=== PATIENT | female | born 1930 | race Caucasian/White ===

== ENCOUNTER 2020-07-24 10:33 | Emergency (ER) | payer MEDICARE ==
[~2020-07-24] VITALS: Ht 160 cm; Wt 75.0 kg
[2020-07-24 10:33] VITALS: BP 172/84
--- NOTE | 2020-07-24 10:46 | PHYS DOC ---
General Adult EDM: Chief Complaint: MECHANICAL FALL HPI: HPI: History obtained from patient and EMS. Patient is an 89-year-old female who resides at [facility] with a history of dementia presents with chief complaint of fall. EMS states they were called the facility because patient experienced mechanical fall 30 minutes prior to arrival. EMS states falls unwitnessed with her the patient fall and responded to immediately. She does use a walker and a cane at baseline ambulate. Patient does note some swelling to the back of her head. She states that she did not lose consciousness. EMS states she does not take any blood thinners. Patient has no other complaints other than some posterior head pain. Denies any chest pain or shortness of breath. Review of Systems: Review of Systems: Constitutional: Denies fever or chills Eyes: Denies change in visual acuity HENT: Denies nasal congestion or sore throat Respiratory: Denies cough or shortness of breath Cardiovascular: Denies chest pain or edema GI: Denies abdominal pain, nausea, vomiting, bloody stools or diarrhea : Denies dysuria Musculoskeletal: Positive for fall Integument: Denies rash Neurologic: Denies headache, focal weakness or sensory changes Endocrine: Denies polyuria or polydipsia Lymphatic: Denies swollen glands Psychiatric: Denies depression or anxiety Heart Score: Risk Factors: Risk Factors: DM, Current or recent (<one month) smoker, HTN, HLP, family history of CAD, obesity. Risk Scores: Score 0 - 3: 2.5% MACE over next 6 weeks - Discharge Home Score 4 - 6: 20.3% MACE over next 6 weeks - Admit for Clinical Observation Score 7 - 10: 72.7% MACE over next 6 weeks - Early Invasive Strategies Allergies: Allergies: Allergies Coded Allergies Type Severity Reaction Last Updated Verified No Known Drug Allergies 07/24/20 No Physical Exam: PE: Physical Exam Trauma: Primary Survey: Airway: Intact. Speaks in normal voice and phonation. Breathing: Breath sounds are clear and equal bilaterally. Circulation: Regular rhythm, 2+ and symmetric radial, DP and PT pulses. Disability: GCS on arrival was 1 (Baseline )4. Pupils 3 mm, ERRL Exposure: Complete exposure obtained and described in detail below. Secondary Survey: General: Awake, alert, appropriate, and in no acute distress HENT: Cephalohematoma noted to the posterior occiput. TMs clear bilaterally, no hemotympanum. No periorbital tenderness or deformity. No obvious craniofacial trauma. Midface is stable. No apparent dental or tongue/oropharyngeal injury. No septal hematoma. Neck: C-spine: no midline tenderness. Without step-off, deformity, abrasion, ecchymosis, or other signs of trauma. Paraspinal musculature with no tenderness and/or hypertonicity. Eyes: Pupils 3 mm ERRL, EOMI grossly, no evidence of ocular trauma, conjunctivae normal Respiratory: CTAB without wheezing, rhonchi, or rales. No distress. Chest wall with no tenderness to palpation. No crepitus, ecchymosis, or flail segment present. Cardiovascular: Regular rhythm without murmurs noted. 2+ and symmetric radial, DP and PT pulses. GI: Soft, non-tender, non-distended Musculoskeletal: T-spine: no midline tenderness. Without step-off, deformity, abrasion, ecchymosis, or other signs of trauma. Paraspinal musculature with no tenderness and/or hypertonicity. L-spine: no midline tenderness. Without step-off, deformity, abrasion, ecchymosis, or other signs of trauma. Paraspinal musculature with no tenderness and/or hypertonicity. RUE: Active ROM, no obvious deformity, no gross weakness or sensory deficits, warm & well-perfused LUE: Active ROM, no obvious deformity, no gross weakness or sensory deficits, warm & well-perfused RLE: Active ROM, no obvious deformity, no gross weakness or sensory deficits, w arm & well-perfused LLE: Active ROM, no obvious deformity, no gross weakness or sensory deficits, warm & well-perfused Integument: Without abrasions, contusions, or lacerations. Neurologic: GCS on arrival as noted above. No obvious focal motor or sensory deficits on examination. Gait not assessed due to acuity of trauma assessment. Current Patient Data: Vital Signs: Vital Signs Date Time Temp Pulse Resp B/P (MAP) Pulse Ox O2 Delivery O2 Flow Rate FiO2 07/24/20 10:33 98.1 62 22 172/84 (113) 95 Room Air EKG: EKG: [] Radiology/Procedures: Radiology/Procedures: [address] [address] IMAGING REPORT Signed PATIENT: DIAMOND NANCE ACCOUNT: [id number] : 1930 LOCATION: ER AGE: 89 SEX: F EXAM STATUS: REG ER ORD. PHYSICIAN: WENDIE BORRERO DO REASON: fall. PROCEDURE: CT HEAD AND CERVICAL SPINE WO CT HEAD AND CERVICAL SPINE WO Date: 07/24/2020 10:40 AM Clinical Indication: fall. Pain Comparison: None. Technique: 5 mm axial tomographic images were obtained of the head without contrast. These were viewed on brain and bone windows. Noncontrast CT of the cervical spine was performed. Sagittal and coronal reformats were performed and evaluated. One or more of the following dose reduction techniques were utilized: Automated exposure control (AEC), Adjustment of mA and/or kV according to patient size, Use of iterative reconstruction technique such as ASiR, CT scan done according to ALARA and image gently/image wisely HEAD FINDINGS: Moderate generalized cerebral and cerebellar volume loss. Extensive nonspecific periventricular hypoattenuation, most commonly seen with chronic small vessel ischemic disease. Small area of right frontal encephalomalacia. No intra- or extra-axial mass or fluid collection. No acute hemorrhage. The ventricles are normal in size, shape, and morphology. The farris-white matter junction is normal. The basilar cisterns are patent. The visualized paranasal sinuses are normal. The visualized portions of the orbits and globes are normal. The mastoid air cells are clear. No aggressive osseous lesion or fracture. Posterior scalp swelling CERVICAL SPINE FINDINGS: Reversal of the cervical lordosis centered at C6-7. 4 mm anterolisthesis at C4-5. No acute fracture. No aggressive lytic or blastic osseous lesions. Moderate multilevel degenerative disc space height loss. Multilevel mild and moderate spinal canal stenosis secondary to disc protrusions and marginal osteophytes. Multilevel moderate to severe neuroforaminal narrowing secondary to uncovertebral arthrosis. Multilevel severe facet arthrosis. The thyroid gland is normal. No cervical lymphadenopathy. Bilateral carotid atherosclerosis. The visualized aerodigestive tract is normal. The visualized portions of the lungs are clear. IMPRESSION: 1. No acute intracranial process. Posterior scalp swelling. 2. No acute cervical spine fracture. 3. Moderate cerebral volume loss. Extensive chronic small vessel ischemic disease. Small area of right frontal encephalomalacia. 4. Advanced degenerative cervical spondylosis. Electronically signed by: Rudi Clavillo MD (07/24/2020 11:13 AM) [id number] DICTATED AND SIGNED BY: RUDI CALVILLO MD DATE: 07/24/20 111 CC: WENDIE BORRERO DO; ROSIBEL LOVE MD ~ [][place] [address] IMAGING REPORT Signed PATIENT: DIAMOND NANCE ACCOUNT: [id number] : 1930 LOCATION: ER AGE: 89 SEX: F EXAM STATUS: REG ER ORD. PHYSICIAN: WENDIE BORRERO DO REASON: fall PROCEDURE: CHEST AP ONLY CHEST AP ONLY History: Reason: fall / Spl. Instructions: / History: . Pain Comparison: None. Findings: No consolidation or pleural effusion. Normal heart size. No pneumothorax. Bilateral glenohumeral DJD. Probable hiatal hernia. Impression: 1. No acute cardiopulmonary process. Electronically signed by: Elijah Diamond DO (07/24/2020 11:07 AM) [id number] DICTATED AND SIGNED BY: ELIJAH DIAMOND DO DATE: 07/24/201106 CC: WENDIE BORRERO DO; ROSIBEL LOVE MD ~ Course & Med Decision Making: Course & Med Decision Making Pertinent Labs and Imaging studies reviewed. (See chart for details) [] Patient is a very pleasant 89-year-old female who presents from her nursing care facility for mechanical fall. CT head imaging of the head and neck were negative for acute traumatic abnormality. Cephalohematoma noted. Patient does not take any blood thinners. Her GCS is 14 which is her baseline secondary to her dementia. Chest x-ray nonacute. I do feel the patient is appropriate for discharge home. She was able to ambulate at her baseline with assistance of a walker in the emergency department. She will be discharged back to her nursing facility. Return precautions discussed and understood. Stable for discharge. Dragon Disclaimer: Dragon Disclaimer: This electronic medical record was generated, in whole or in part, using a voice recognition dictation system. Departure Departure: Impression: Primary Impression: Fall Qualified Codes: W19.XXXA - Unspecified fall, initial encounter Additional Impression: Head injury Qualified Codes: S09.90XA - Unspecified injury of head, initial encounter Disposition: 03 DC/TRF TO SNF Condition: STABLE Referrals: PCP,NO (PCP) Patient Instructions: Fall Prevention and Home Safety Additional Instructions: Please follow-up with your primary care physician in the next 2 to 3 days. WENDIE BORRERO DO Jul 24, 2020 10:46
--- NOTE | 2020-07-24 11:09 | RAD ---
CHEST AP ONLY History: Reason: fall / Spl. Instructions: / History: . Pain Comparison: None. Findings: No consolidation or pleural effusion. Normal heart size. No pneumothorax. Bilateral glenohumeral DJD. Probable hiatal hernia. Impression: 1. No acute cardiopulmonary process. Electronically signed by: Elijah Taylor DO (07/24/2020 11:07 AM) [id number]
--- NOTE | 2020-07-24 11:17 | RAD ---
CT HEAD AND CERVICAL SPINE WO Date: 07/24/2020 10:40 AM Clinical Indication: fall. Pain Comparison: None. Technique: 5 mm axial tomographic images were obtained of the head without contrast. These were viewed on brain and bone windows. Noncontrast CT of the cervical spine was performed. Sagittal and coronal reformats were performed and evaluated. One or more of the following dose reduction techniques were utilized: Automated exposure control (AEC), Adjustment of mA and/or kV according to patient size, Use of iterative reconstruction technique such as ASiR, CT scan done according to ALARA and image gently/image wisely HEAD FINDINGS: Moderate generalized cerebral and cerebellar volume loss. Extensive nonspecific periventricular hypoattenuation, most commonly seen with chronic small vessel ischemic disease. Small area of right frontal encephalomalacia. No intra- or extra-axial mass or fluid collection. No acute hemorrhage. The ventricles are normal in size, shape, and morphology. The farris-white matter junction is normal. The basilar cisterns are patent. The visualized paranasal sinuses are normal. The visualized portions of the orbits and globes are normal. The mastoid air cells are clear. No aggressive osseous lesion or fracture. Posterior scalp swelling CERVICAL SPINE FINDINGS: Reversal of the cervical lordosis centered at C6-7. 4 mm anterolisthesis at C4-5. No acute fracture. No aggressive lytic or blastic osseous lesions. Moderate multilevel degenerative disc space height loss. Multilevel mild and moderate spinal canal stenosis secondary to disc protrusions and marginal osteophytes. Multilevel moderate to severe neuroforaminal narrowing secondary to uncovertebral arthrosis. Multilevel severe facet arthrosis. The thyroid gland is normal. No cervical lymphadenopathy. Bilateral carotid atherosclerosis. The visualized aerodigestive tract is normal. The visualized portions of the lungs are clear. IMPRESSION: 1. No acute intracranial process. Posterior scalp swelling. 2. No acute cervical spine fracture. 3. Moderate cerebral volume loss. Extensive chronic small vessel ischemic disease. Small area of right frontal encephalomalacia. 4. Advanced degenerative cervical spondylosis. Electronically signed by: Sean Calvillo MD (07/24/2020 11:13 AM) [id number]
== END 2020-07-24 11:21 ==
LOC: ER 10:33
DX: S06.2X9A Diffuse traumatic brain injury with loss of consciousness of unspecified duration, initial encounter (principal); F03.90 Unspecified dementia, unspecified severity, without behavioral disturbance, psychotic disturbance, mood disturbance, and anxiety; W18.39XA Other fall on same level, initial encounter; Y93.89 Activity, other specified; Y92.89 Other specified places as the place of occurrence of the external cause; Y99.8 Other external cause status
CPT/HCPCS: 70450; 71045; 72125; 99285

== ENCOUNTER 2020-08-27 10:55 | Emergency (ER) | payer MEDICARE ==
[~2020-08-27] VITALS: Ht 167.6 cm; Wt 81.4 kg
--- NOTE | 2020-08-27 11:05 | PHYS DOC ---
Past History Past Medical History: CVA, Dementia, Depression, GERD, Hypertension, Hypothyroid, Other (Parkinson's, osteoporosis) Adult General HPI HPI Patient is a 89-year-old female who presents via EMS status post fall. Patient is a full code and resident at local [facility] facility. Patient reports suffering a mechanical fall falling over her legs while using a walker in her room, she attempted to grab lampshade to brace her fall, falling on her right knee and then subsequent right forehead. Denies loss of consciousness, remembers event well. Nonetheless, this fall was unwitnessed. She was found by nursing staff immediately after event and there were difficulties getting her up and so EMS was called for assistance. On arrival, patient hemodynamically stable, at baseline mentation with baseline motor and sensory function status post prior CVA. She reports complaints of anterior left frontotemporal pain, neck pain and right knee pain Review of Systems Review of Systems Fourteen body systems of review of systems have been reviewed. See HPI for pertinent positives and negative responses, other ventura all other systems are negative, non-pertinent or non-contributory Physical Exam Physical Exam Constitutional: Pt is oriented to person, place, and time. Pt appears well- developed and well-nourished. HENT: Head: Normocephalic and atraumatic. Mouth/Throat: Oropharynx is clear and moist. No hematomas or lacerations or abrasions to face or scalp OP clear, no blood, no malocclusion, dentition intact Nares clear, no nasal septal hematoma TMs clear, no hemotympanum Midface stable Eyes: Conjunctivae and EOM are normal. Pupils are equal, round, and reactive to light. Neck: C-spine midline nontender, no step-offs Cardiovascular: Normal rate, regular rhythm and normal heart sounds. Pulmonary/Chest: Effort normal and breath sounds normal. No respiratory distress. No wheezes. CTA bilaterally Abdominal: Soft. Bowel sounds are normal. Pt exhibits no distension. There is no tenderness. Musculoskeletal: No bony tenderness to extremities except palpable tenderness to anterior portion of knee without any crepitus or other concerning abnormalities,, no obvious deformities, full ROM extremities Chest wall stable Pelvis stable and non-tender No vertebral TTP and spine without stepoffs Neurological: Pt is alert and oriented to person, place, and time. Moving all extremities willfully, able to wiggle all fingers and toes Alert and oriented x 3 Sensation grossly intact Skin: Skin is warm and dry. No abrasions, no lacerations Psychiatric: Behavior is appropriate for situation Nursing note and vitals reviewed. Current Patient Data Vital Signs Vital Signs Date Time Temp Pulse Resp B/P (MAP) Pulse Ox O2 Delivery O2 Flow Rate FiO2 08/27/20 12:33 57 16 193/83 (119) 97 Room Air 08/27/20 11:16 98.0 EKG EKG EKG ordered and interpreted by myself 1020 hrs. as sinus rhythm at 54 bpm, unremarkable intervals, left axis deviation, no acute ischemic findings, no STEMI Radiology/Procedures Radiology/Procedures PROCEDURE: CT HEAD AND CERVICAL SPINE WO EXAM: CT Head without IV contrast INDICATION: Reason: fall, rt side deficits / Spl. Instructions: / History: TECHNIQUE: Multi-detector row CT images were obtained of the head without the use of IV contrast. All CT scans performed at this facility utilize dose optimization techniques as appropriate to the exam, including the following: Automated exposure control and adjustment of the mA and/or KV according to patient size (this includes techniques or standardized protocols for targeted exams where dose is indication/reason for exam). COMPARISON: None FINDINGS: BRAIN PARENCHYMA: No evidence of acute intraparenchymal hemorrhage or infarct. Generalized parenchymal atrophy and encephalomalacia in the superior right frontal lobe consistent with chronic infarct is present. Extensive white matter low density compatible with chronic ischemic microvascular changes also noted. VENTRICLES & EXTRA-AXIAL SPACES: Ventricles are enlarged in proportion to the degree of parenchymal volume loss. Basilar cisterns are patent. No pathologic extra-axial fluid collection or mass. ORBITS: Orbital contents are unremarkable. SINUSES: Visualized paranasal sinuses and mastoid air cells are clear. OSSEOUS & SOFT TISSUES: Calvarium and skull base are intact. IMPRESSION: Chronic infarct in the right frontal lobe and changes of chronic ischemic microvascular disease. No acute intracranial pathology. EXAM: CT Cervical Spine without IV contrast INDICATION: Reason: fall, rt side deficits / Spl. Instructions: / History: TECHNIQUE: Multi-detector row CT images were obtained through the cervical spine without the use of IV contrast. Post-processing sagittal and coronal reconstructed images were obtained for interpretation. All CT scans performed at this facility utilize dose optimization techniques as appropriate to the exam, including the following: Automated exposure control and adjustment of the mA and/or KV according to patient size (this includes techniques or standardized protocols for targeted exams where dose is indication/reason for exam). COMPARISON: None FINDINGS: CRANIOCERVICAL JUNCTION: Unremarkable. ALIGNMENT: Grade 1 anterolisthesis of C4 on C5 is present. There is reversal normal cervical lordosis. OSSEOUS: No evidence of fracture or bone destruction. DISC SPACES: Multilevel degenerative spondylosis. FACET JOINTS: Facet hypertrophy at multiple levels throughout the cervical spine is present. SPINAL CANAL: No high-grade bony stenosis. NEUROFORAMINA: Varying degrees of foraminal narrowing, most conspicuous at C4-C5 bilaterally. SOFT TISSUES: Unremarkable. IMPRESSION: No acute traumatic findings in the cervical spine. FOR INTERNAL CODING PURPOSES Critical result: Findings discussed with SAMIA MONTERO at 08/27/2020 11:27 AM. RESULT CODE: (C) Heart Score HEART Score for Chest Pain: HEART Score for Chest Pain Response (Comments) Value History Slighlty/Non-Suspicious 0 ECG Normal 0 Age > 65 2 Risk Factors >3 Risk Factors or Hx CAD 2 Total 4 Risk Factors: Risk Factors: DM, Current or recent (<one month) smoker, HTN, HLP, family history of CAD, obesity. Risk Scores: Risk Factors: DM, Current or recent (<one month) smoker, HTN, HLP, family history of CAD, obesity. Course & Med Decision Making Course & Med Decision Making Pertinent Labs and Imaging studies reviewed. (See chart for details) Discussed most likely diagnosis mechanical fall. Patient likely has contusion to head and right anterior knee with no obvious bony abnormalities Given history, exam, and workup, low suspicion for ICH, skull fx, spine fx or other acute spinal syndrome, PTX, pulmonary contusion, cardiac contusion, aortic/vertebral dissection, significant hemorrhage, extremity fracture. Joint decision to discharge back to senior living with strict return precautions and instructions for prompt primary care follow up. All questions and concerns addressed prior to ER departure in stable condition Narcisa Disclaimer Lateshaon Disclaimer This electronic medical record was generated, in whole or in part, using a voice recognition dictation system. Departure Departure: Impression: Primary Impression: Accident due to mechanical fall without injury Additional Impression: Contusion Disposition: 01 DC HOME SELF CARE/HOMELESS (Back to senior living, [facility]) Condition: STABLE Referrals: ROSIBEL LOVE MD (PCP) Patient Instructions: Contusion, Fall Prevention and Home Safety Problem Qualifiers SAMIA MONTERO DO Aug 27, 2020 11:04
--- NOTE | 2020-08-27 11:21 | EKG ---
[address] [address] Test Date: 2020-08-27 Test Time: 11:17:36 Pat Name: SABRINA NANCE Department: Room: Gender: F Translator/Interpreter: CRISELDA : 1930 Requested By: SAMIA MONTERO Order Number: [id number] Reading MD: Measurements Intervals Ferron Rate: 54 P: SC: QRS: -18 QRSD: 80 T: 1 QT: 430 QTc: 410 Interpretive Statements IRREGULAR RHYTHM, NO P-WAVE FOUND LEFTWARD AXIS QRS(T) CONTOUR ABNORMALITY CONSISTENT WITH INFERIOR INFARCT AGE UNDETERMINED T ABNORMALITY IN HIGH LATERAL LEADS ABNORMAL ECG RI6.02 No previous ECG available for comparison
--- NOTE | 2020-08-27 11:31 | RAD ---
EXAM: CT Head without IV contrast INDICATION: Reason: fall, rt side deficits / Spl. Instructions: / History: TECHNIQUE: Multi-detector row CT images were obtained of the head without the use of IV contrast. All CT scans performed at this facility utilize dose optimization techniques as appropriate to the exam, including the following: Automated exposure control and adjustment of the mA and/or KV according to patient size (this includes techniques or standardized protocols for targeted exams where dose is indication/reason for exam). COMPARISON: None FINDINGS: BRAIN PARENCHYMA: No evidence of acute intraparenchymal hemorrhage or infarct. Generalized parenchymal atrophy and encephalomalacia in the superior right frontal lobe consistent with chronic infarct is present. Extensive white matter low density compatible with chronic ischemic microvascular changes also noted. VENTRICLES & EXTRA-AXIAL SPACES: Ventricles are enlarged in proportion to the degree of parenchymal volume loss. Basilar cisterns are patent. No pathologic extra-axial fluid collection or mass. ORBITS: Orbital contents are unremarkable. SINUSES: Visualized paranasal sinuses and mastoid air cells are clear. OSSEOUS & SOFT TISSUES: Calvarium and skull base are intact. IMPRESSION: Chronic infarct in the right frontal lobe and changes of chronic ischemic microvascular disease. No acute intracranial pathology. EXAM: CT Cervical Spine without IV contrast INDICATION: Reason: fall, rt side deficits / Spl. Instructions: / History: TECHNIQUE: Multi-detector row CT images were obtained through the cervical spine without the use of IV contrast. Post-processing sagittal and coronal reconstructed images were obtained for interpretation. All CT scans performed at this facility utilize dose optimization techniques as appropriate to the exam, including the following: Automated exposure control and adjustment of the mA and/or KV according to patient size (this includes techniques or standardized protocols for targeted exams where dose is indication/reason for exam). COMPARISON: None FINDINGS: CRANIOCERVICAL JUNCTION: Unremarkable. ALIGNMENT: Grade 1 anterolisthesis of C4 on C5 is present. There is reversal normal cervical lordosis. OSSEOUS: No evidence of fracture or bone destruction. DISC SPACES: Multilevel degenerative spondylosis. FACET JOINTS: Facet hypertrophy at multiple levels throughout the cervical spine is present. SPINAL CANAL: No high-grade bony stenosis. NEUROFORAMINA: Varying degrees of foraminal narrowing, most conspicuous at C4-C5 bilaterally. SOFT TISSUES: Unremarkable. IMPRESSION: No acute traumatic findings in the cervical spine. FOR INTERNAL CODING PURPOSES Critical result: Findings discussed with SAMIA MONTERO at 08/27/2020 11:27 AM. RESULT CODE: (C) Electronically signed by: Brenden Simon MD (08/27/2020 11:27 AM) [id number]
--- NOTE | 2020-08-27 12:58 | RAD ---
KNEE RIGHT 4V History: Reason: fall to right knee / Spl. Instructions: / History: Pain Technique: 4 views right knee. Comparison: None. Findings: Normal alignment. No fracture. Moderate knee degenerative changes most prominent in the medial compartment. No significant knee joint effusion. Impression: 1. No acute osseous abnormality. 2. Moderate knee DJD. Electronically signed by: Elijah Taylor DO (08/27/2020 12:55 PM) [id number]
[2020-08-27 14:15] VITALS: BP 178/83
== END 2020-08-27 14:38 | disposition home or self-care (01) ==
LOC: ER 10:55 → MERGE 10:55 → ER 14:38
DX: S00.93XA Contusion of unspecified part of head, initial encounter (principal); S80.01XA Contusion of right knee, initial encounter; M54.2 Cervicalgia; M25.561 Pain in right knee; F03.90 Unspecified dementia, unspecified severity, without behavioral disturbance, psychotic disturbance, mood disturbance, and anxiety; K21.9 Gastro-esophageal reflux disease without esophagitis; I10 Essential (primary) hypertension; E03.9 Hypothyroidism, unspecified; Z86.73 Personal history of transient ischemic attack (TIA), and cerebral infarction without residual deficits; W18.39XA Other fall on same level, initial encounter; Y93.89 Activity, other specified; Y92.89 Other specified places as the place of occurrence of the external cause; Y99.8 Other external cause status
CPT/HCPCS: 70450; 72125; 73564; 82947; 93005; 99285-25

== ENCOUNTER 2020-09-08 09:52 | Inpatient (IN) | payer MEDICARE ==
[~2020-09-08] VITALS: Ht 162.6 cm; Wt 75.9 kg
--- NOTE | 2020-09-08 10:00 | PHYS DOC ---
Past History Past Medical History: CVA, Dementia, Depression, GERD, Hypertension, Hypothyroid, Other Additional Past Medical Histor: Parkinsons, Past Surgical History: , Other Additional Past Surgical Histo: Spinal, GI Alcohol Use: None General Adult EDM: Chief Complaint: NEURO SYMPTOMS/DEFICITS HPI: HPI: Patient is a 89-year-old female who arrives via EMS with a chief complaint of altered mental status and possible stroke. History physical review of systems are all limited due to the patient's history of dementia. Patient was last known normal at 9:20 AM when she went to the cleaning facility at her residential when she sat down she went unresponsive. When paramedics arrived she was responsive to painful stimulus only. By time she arrived she was becoming verbal and complained of a headache and nausea. Patient received 4 mg of Zofran prior to arrival. Paramedics believe the there is a right-sided facial droop therefore code stroke was activated. Upon my initial assessment I do not appreciate any right-sided facial droop. Patient does complain of abdominal pain and nausea. patient's blood pressure was in the 90s per EMS and blood sugar was in the 190s. Review of Systems: Review of Systems: Constitutional: Denies fever or chills Eyes: Denies change in visual acuity HENT: Denies nasal congestion or sore throat Respiratory: Denies cough or shortness of breath Cardiovascular: Denies chest pain or edema GI: Complains abdominal pain, nausea and vomiting but no diarrhea : Denies dysuria Musculoskeletal: Denies back pain or joint pain Integument: Denies rash Neurologic: Patient has a headache Endocrine: Denies polyuria or polydipsia Lymphatic: Denies swollen glands Psychiatric: Denies depression or anxiety Allergies: Allergies: Allergies Coded Allergies Type Severity Reaction Last Updated Verified No Known Drug Allergies 07/24/20 No Physical Exam: PE: Constitutional: Well developed, well nourished, no acute distress, non-toxic appearance. [] HENT: Normocephalic, atraumatic, bilateral external ears normal, mucous membranes are moist nose normal. [] Eyes: PERRLA, EOMI, conjunctiva normal, no discharge. [] Neck: Normal range of motion, no tenderness, supple, no stridor. [] Cardiovascular: Bradycardic peripheral pulses are intact, cap refill is brisk Lungs & Thorax: Bilateral breath sounds clear, no respiratory distress Abdomen: Abdomen soft without guarding or rebound mild diffuse tenderness, no masses no pulsatile masses Skin: Warm, dry, no erythema, no rash. [] Mild pallor Back: No tenderness, no CVA tenderness. [] Extremities: No tenderness, no cyanosis, no clubbing, ROM intact, no edema. [] Neurologic: Alert but mild confusion, generalized weakness without lateralizing deficits Psychologic: Affect normal, judgement normal, mood normal. [] Current Patient Data: Labs: Laboratory Tests Test 09/08/20 10:08 09/08/20 10:58 White Blood Count 5.7 x10^3/uL Red Blood Count 4.93 x10^6/uL Hemoglobin 13.4 g/dL Hematocrit 41.7 % Mean Corpuscular Volume 85 fL Mean Corpuscular Hemoglobin 27 pg Mean Corpuscular Hemoglobin Concent 32 g/dL Red Cell Distribution Width 16.4 % Platelet Count 225 x10^3/uL Neutrophils (%) (Auto) 63 % Lymphocytes (%) (Auto) 23 % Monocytes (%) (Auto) 10 % Eosinophils (%) (Auto) 3 % Basophils (%) (Auto) 1 % Neutrophils # (Auto) 3.6 x10^3uL Lymphocytes # (Auto) 1.3 x10^3/uL Monocytes # (Auto) 0.5 x10^3/uL Eosinophils # (Auto) 0.2 x10^3/uL Basophils # (Auto) 0.1 x10^3/uL Prothrombin Time 9.6 SEC Prothromb Time International Ratio 0.9 Activated Partial Thromboplast Time 23 SEC Sodium Level 141 mmol/L Potassium Level 3.9 mmol/L Chloride Level 103 mmol/L Carbon Dioxide Level 29 mmol/L Anion Gap 9 Blood Urea Nitrogen 14 mg/dL Creatinine 1.0 mg/dL Estimated GFR (Cockcroft-Gault) 52.3 BUN/Creatinine Ratio 14 Glucose Level 166 mg/dL Calcium Level 9.2 mg/dL Total Bilirubin 0.4 mg/dL Aspartate Amino Transf (AST/SGOT) 16 U/L Alanine Aminotransferase (ALT/SGPT) 14 U/L Alkaline Phosphatase 85 U/L Troponin I Quantitative < 0.017 ng/mL Total Protein 7.5 g/dL Albumin 3.8 g/dL Albumin/Globulin Ratio 1.0 Lipase 134 U/L Urine Collection Type U cath Urine Color Yellow Urine Clarity Clear Urine pH 6.0 Urine Specific [place] 1.020 Urine Protein 100 mg/dl Urine Glucose (UA) Neg mg/dL Urine Ketones (Stick) Trace mg/dL Urine Blood Trace Urine Nitrite Neg Urine Bilirubin Neg Urine Urobilinogen Dipstick 0.2 mg/dL Urine Leukocyte Esterase Neg Urine RBC 3-5 /HPF Urine WBC 1-4 /HPF Urine Squamous Epithelial Cells Occ /LPF Urine Transitional Epithelial Cells Occ /LPF Urine Bacteria Few /HPF Urine Hyaline Casts Many /HPF Urine Granular Casts Few /HPF Urine Mucus Mod /LPF Current Medications Medications (Trade) Dose Ordered Sig/Sarah Route PRN Reason Start Time Stop Time Status Last Admin Dose Admin Ondansetron HCl (Zofran) 4 mg PRN Q4HRS PRN IVP NAUSEA/VOMITING 09/08/20 11:45 09/09/20 11:44 Vital Signs: Vital Signs Date Time Temp Pulse Resp B/P (MAP) Pulse Ox O2 Delivery O2 Flow Rate FiO2 09/08/20 10:05 96.0 47 130/80 (97) 93 EKG: EKG: [] EKG interpreted by me sinus bradycardia with a left axis deviation, first- degree AV block, nonspecific ST changes Radiology/Procedures: Radiology/Procedures: [][address] [address] IMAGING REPORT Signed PATIENT: SABRINA NANCE ACCOUNT: [id number] : 1930 LOCATION: ER AGE: 89 SEX: F EXAM STATUS: REG ER ORD. PHYSICIAN: MICHELLE COLIN MD REASON: ABDOMINAL PAIN, N/V PROCEDURE: CT ABDOMEN PELVIS WO CONTRAST Exam: CT abdomen/pelvis without intravenous contrast Indication: Abdominal pain, nausea and vomiting Comparison: None Technique: Helical CT imaging performed of the abdomen and pelvis without the use of intravenous contrast. Sagittal and coronal reformats were obtained. One or more of the following individualized dose reduction techniques were utilized for this examination: 1. Automated exposure control 2. Adjustment of the mA and/or kV according to patient size 3. Use of iterative reconstruction technique. Findings: Inherently limited evaluation without intravenous contrast. Lower chest: Mild atelectasis in the left lower lobe. The heart is normal in size. Liver: The liver is normal in size. There is a 5 mm hypodensity in the right hepatic lobe, too small to characterize. Gallbladder/Biliary Tree: The gallbladder is surgically absent. Bile ducts are unremarkable. Pancreas: Normal. Spleen: Normal. Adrenal Glands: Normal. Kidneys/Ureters/Bladder: Kidneys are normal in size. No hydronephrosis or nephrolithiasis. Ureters and bladder are normal. Reproductive Organs: Uterus is surgically absent. There is a 7.7 x 4.0 x 4.3 cm predominantly solid right adnexal mass with a small cystic component. This abuts a loop of ileum. No left adnexal mass. Stomach, small bowel, and colon: Large hiatal hernia. No small bowel obstruction. The appendix is not visualized. Large volume of stool in the left hemicolon. The colon is otherwise normal. Vasculature: Abdominal aorta is normal in caliber. There is moderate calcified aortoiliac atherosclerosis. Lymph Nodes: There is a 1.3 cm cami hepatis lymph node, nonspecific. Peritoneum and retroperitoneum: No free fluid or free air. Bones: The bones are diffusely demineralized. There is left greater than right sacroiliac joint sclerosis. There are erosions of the ossicular chain on the left. Severe facet arthrosis at L3-L4 through L5-S1. There is grade 1 anterolisthesis of L4 on L5. Multilevel severe degenerative disc disease. Mild rightward curvature of the lower lumbar spine. There is canal and foraminal narrowing at multiple levels this appears most severe at T9-T10 and T10-T11. Miscellaneous: Small fat-containing umbilical hernia. Impression: 1. 7 cm predominantly solid right adnexal mass. This is suspicious for ovarian neoplasm. 2. Large hiatal hernia. 3. Advanced lower thoracic and lumbar degenerative disc disease and facet arthrosis with multilevel canal and foraminal narrowing. Bilateral sacroiliitis. 4. Moderate calcified aortoiliac atherosclerosis. Electronically signed by: Magalie Salazar MD (09/08/2020 11:13 AM) [id number] DICTATED AND SIGNED BY: MAGALIE SALAZAR MD DATE: 09/08/20 1110 CC: MICHELLE COLIN MD; ROSIBEL LOVE MD ~MTH0 [address] [address] IMAGING REPORT Signed PATIENT: SABRINA NANCE ACCOUNT: [id number] : 1930 LOCATION: ER AGE: 89 SEX: F EXAM STATUS: REG ER ORD. PHYSICIAN: MICHELLE COILN MD REASON: code stroke PROCEDURE: CHEST AP ONLY AP portable chest radiograph 09/08/2020 Clinical History: Code stroke. An AP erect portable digital radiograph of the chest was obtained. Comparison study is dated 07/24/2020. The cardiac silhouette is mildly enlarged. The thoracic aorta is tortuous. Atherosclerotic calcification thoracic aorta is seen. No acute pulmonary infiltrate is seen. No pneumothorax or pleural effusion is noted. The osseous structures are unchanged. Impression: No acute abnormality is seen. Electronically signed by: Parag Herr MD (09/08/2020 10:42 AM) [id number] DICTATED AND SIGNED BY: PARAG HERR MD DATE: 09/08/20 1042 CC: MICHELLE COLIN MD; ROSIBEL LOVE MD ~MTH0 [address] [address] IMAGING REPORT Signed PATIENT: SABRINA NANCE ACCOUNT: [id number] : 1930 LOCATION: ER AGE: 89 SEX: F EXAM STATUS: PRE ER ORD. PHYSICIAN: MICHELLE COLIN MD REASON: r facial weakness PROCEDURE: CT CODE STROKE HEAD WO EXAM: CT Head without IV contrast INDICATION: Reason: r facial weakness / Spl. Instructions: / History: TECHNIQUE: Multi-detector row CT images were obtained of the head without the use of IV contrast. All CT scans performed at this facility utilize dose optimization techniques as appropriate to the exam, including the following: Automated exposure control and adjustment of the mA and/or KV according to patient size (this includes techniques or standardized protocols for targeted exams where dose is indication/reason for exam). COMPARISON: Noncontrast head CT of 07/24/2020 FINDINGS: BRAIN PARENCHYMA: No evidence of acute intraparenchymal hemorrhage or infarct. Generalized parenchymal volume loss is present along with a chronic infarct in the superior right frontal lobe and extensive white matter low density compatible with chronic ischemic microvascular change. VENTRICLES & EXTRA-AXIAL SPACES: Ventricles are within normal limits. Basilar cisterns are patent. No pathologic extra-axial fluid collection or mass. ORBITS: Orbital contents are unremarkable. SINUSES: Visualized paranasal sinuses and mastoid air cells are clear. OSSEOUS & SOFT TISSUES: Calvarium and skull base are intact. IMPRESSION: No acute intracranial pathology. FOR INTERNAL CODING PURPOSES Critical result: Findings discussed with MICHELLE COLIN at 09/08/2020 10:09 AM. RESULT CODE: (C) Electronically signed by: Shona Simon MD (09/08/2020 10:09 AM) [id number] DICTATED AND SIGNED BY: SHONA SIMON MD DATE: 09/08/20 1009 CC: MICHELLE COLIN MD; ROSIBEL LOVE MD ~MTH0 0 Heart Score: Risk Factors: Risk Factors: DM, Current or recent (<one month) smoker, HTN, HLP, family history of CAD, obesity. Risk Scores: Score 0 - 3: 2.5% MACE over next 6 weeks - Discharge Home Score 4 - 6: 20.3% MACE over next 6 weeks - Admit for Clinical Observation Score 7 - 10: 72.7% MACE over next 6 weeks - Early Invasive Strategies Course & Med Decision Making: Course & Med Decision Making Pertinent Labs and Imaging studies reviewed. (See chart for details) [] 89-year-old female came in as a code stroke activation. Patient has no lateralizing deficits on my exam. I feel most likely she had a syncopal event and is bradycardic in the ER. Patient also has a first-degree AV block. Patient will need to be admitted for further observation and treatment due to her bradycardia and syncope. Due to the fact that I do not think she had a stroke I do not think she is a candidate for TPA or interventional neurology. I discussed the case with who will be the admitting physician. Narcisa Disclaimer: Narcisa Disclaimer: This electronic medical record was generated, in whole or in part, using a voice recognition dictation system. Departure Departure: Impression: Primary Impression: Syncope Additional Impressions: Abdominal pain Bradycardia Ovarian mass Disposition: ADMITTED INPT THIS HOSP Admitting Physician: Kj Schmitt Condition: STABLE Referrals: ROSIBEL LOVE MD (PCP) MICHELLE COLIN MD Sep 08, 2020 10:00
--- NOTE | 2020-09-08 10:13 | RAD ---
EXAM: CT Head without IV contrast INDICATION: Reason: r facial weakness / Spl. Instructions: / History: TECHNIQUE: Multi-detector row CT images were obtained of the head without the use of IV contrast. All CT scans performed at this facility utilize dose optimization techniques as appropriate to the exam, including the following: Automated exposure control and adjustment of the mA and/or KV according to patient size (this includes techniques or standardized protocols for targeted exams where dose is indication/reason for exam). COMPARISON: Noncontrast head CT of 07/24/2020 FINDINGS: BRAIN PARENCHYMA: No evidence of acute intraparenchymal hemorrhage or infarct. Generalized parenchymal volume loss is present along with a chronic infarct in the superior right frontal lobe and extensive white matter low density compatible with chronic ischemic microvascular change. VENTRICLES & EXTRA-AXIAL SPACES: Ventricles are within normal limits. Basilar cisterns are patent. No pathologic extra-axial fluid collection or mass. ORBITS: Orbital contents are unremarkable. SINUSES: Visualized paranasal sinuses and mastoid air cells are clear. OSSEOUS & SOFT TISSUES: Calvarium and skull base are intact. IMPRESSION: No acute intracranial pathology. FOR INTERNAL CODING PURPOSES Critical result: Findings discussed with MICHELLE COLIN at 09/08/2020 10:09 AM. RESULT CODE: (C) Electronically signed by: Brenden Simon MD (09/08/2020 10:09 AM) [id number]
[2020-09-08 10:24] LABS: BASO # 0.1 x10^3/uL (0.0-0.2); BASO % 1 % (0-3); EOS # 0.2 x10^3/uL (0.0-0.7); EOS % 3 % (0-3); HEMATOCRIT 41.7 % (36.0-47.0); HEMOGLOBIN 13.4 g/dL (12.0-15.5); LYMPH # 1.3 x10^3/uL (1.0-4.8); LYMPH % 23 % (24-48); MEAN CORPUSCULAR HEMOGLOBIN 27 pg (25-35); MEAN CORPUSCULAR HGB CONC 32 g/dL (31-37); MEAN CORPUSCULAR VOLUME 85 fL (79-100); MONO # 0.5 x10^3/uL (0.0-1.1); MONO % 10 % (0-9); NEUT # 3.6 x10^3uL (1.8-7.7); NEUT % 63 % (31-73); PLATELET COUNT 225 x10^3/uL (140-400); RED BLOOD COUNT 4.93 x10^6/uL (3.50-5.40); RED CELL DISTRIBUTION WIDTH 16.4 % (11.5-14.5); WHITE BLOOD COUNT 5.7 x10^3/uL (4.0-11.0)
[2020-09-08 10:34] LABS: CALCIUM 9.2 mg/dL (8.5-10.1); GFR 52.3; POTASSIUM 3.9 mmol/L (3.5-5.1)
[2020-09-08 10:38] LABS: ALBUMIN 3.8 g/dL (3.4-5.0); TOTAL BILIRUBIN 0.4 mg/dL (0.2-1.0); TOTAL PROTEIN 7.5 g/dL (6.4-8.2)
--- NOTE | 2020-09-08 10:45 | RAD ---
AP portable chest radiograph 09/08/2020 Clinical History: Code stroke. An AP erect portable digital radiograph of the chest was obtained. Comparison study is dated 07/24/2020. The cardiac silhouette is mildly enlarged. The thoracic aorta is tortuous. Atherosclerotic calcification thoracic aorta is seen. No acute pulmonary infiltrate is seen. No pneumothorax or pleural effusion is noted. The osseous structures are unchanged. Impression: No acute abnormality is seen. Electronically signed by: Parag Herr MD (09/08/2020 10:42 AM) [id number]
--- NOTE | 2020-09-08 10:58 | EKG ---
[address] [address] Test Date: 2020-09-08 Test Time: 10:20:18 Pat Name: SABRINA NANCE Department: Room: Gender: F Implementation Lead: : 1930 Requested By: MICHELLE COLIN Order Number: [id number] Reading MD: Wilfred Patricio MD Measurements Intervals [place] Rate: 47 P: 48 ID: [id number] QRS: -19 QRSD: 90 T: 19 QT: 460 QTc: 411 Interpretive Statements SINUS BRADYCARDIA PROLONGED ID INTERVAL LEFTWARD AXIS QRS(T) CONTOUR ABNORMALITY CONSISTENT WITH ANTEROSEPTAL INFARCT PROBABLY OLD CONSISTENT WITH INFERIOR INFARCT PROBABLY OLD ABNORMAL ECG Electronically Signed On 09-09-2020 10:59:37 [employer]ICE by Wilfred Patricio MD
--- NOTE | 2020-09-08 11:16 | RAD ---
Exam: CT abdomen/pelvis without intravenous contrast Indication: Abdominal pain, nausea and vomiting Comparison: None Technique: Helical CT imaging performed of the abdomen and pelvis without the use of intravenous contrast. Sagittal and coronal reformats were obtained. One or more of the following individualized dose reduction techniques were utilized for this examination: 1. Automated exposure control 2. Adjustment of the mA and/or kV according to patient size 3. Use of iterative reconstruction technique. Findings: Inherently limited evaluation without intravenous contrast. Lower chest: Mild atelectasis in the left lower lobe. The heart is normal in size. Liver: The liver is normal in size. There is a 5 mm hypodensity in the right hepatic lobe, too small to characterize. Gallbladder/Biliary Tree: The gallbladder is surgically absent. Bile ducts are unremarkable. Pancreas: Normal. Spleen: Normal. Adrenal Glands: Normal. Kidneys/Ureters/Bladder: Kidneys are normal in size. No hydronephrosis or nephrolithiasis. Ureters and bladder are normal. Reproductive Organs: Uterus is surgically absent. There is a 7.7 x 4.0 x 4.3 cm predominantly solid right adnexal mass with a small cystic component. This abuts a loop of ileum. No left adnexal mass. Stomach, small bowel, and colon: Large hiatal hernia. No small bowel obstruction. The appendix is not visualized. Large volume of stool in the left hemicolon. The colon is otherwise normal. Vasculature: Abdominal aorta is normal in caliber. There is moderate calcified aortoiliac atherosclerosis. Lymph Nodes: There is a 1.3 cm cami hepatis lymph node, nonspecific. Peritoneum and retroperitoneum: No free fluid or free air. Bones: The bones are diffusely demineralized. There is left greater than right sacroiliac joint sclerosis. There are erosions of the ossicular chain on the left. Severe facet arthrosis at L3-L4 through L5-S1. There is grade 1 anterolisthesis of L4 on L5. Multilevel severe degenerative disc disease. Mild rightward curvature of the lower lumbar spine. There is canal and foraminal narrowing at multiple levels this appears most severe at T9-T10 and T10-T11. Miscellaneous: Small fat-containing umbilical hernia. Impression: 1. 7 cm predominantly solid right adnexal mass. This is suspicious for ovarian neoplasm. 2. Large hiatal hernia. 3. Advanced lower thoracic and lumbar degenerative disc disease and facet arthrosis with multilevel canal and foraminal narrowing. Bilateral sacroiliitis. 4. Moderate calcified aortoiliac atherosclerosis. Electronically signed by: Magalie Salazar MD (09/08/2020 11:13 AM) [id number]
[2020-09-08 11:45] LABS: BACTERIA,URINE FEW /HPF (0-FEW); BILIRUBIN,URINE NEG (NEG); CLARITY,URINE CLEAR; COLOR,URINE YELLOW; GLUCOSE,URINE NEG (NEG); NITRITE,URINE NEG (NEG); SQUAMOUS EPITHELIAL CELL,UR OCC /LPF; UROBILINOGEN,URINE 0.2 mg/dL (0.2 mg/dL)
[2020-09-08] MEDS ORDERED: ONDANSETRON PF 4 MG/2 ML VIAL. IVP PRN (11:45)
[2020-09-08 11:46] LABS: GRANULAR CASTS,URINE FEW /HPF; HYALINE CASTS, URINE MANY /HPF
[2020-09-08] MEDS ORDERED: cefTRIAXone SODIUM 1 GM VIAL ONE (13:04)
[2020-09-08] MEDS ORDERED: IV NORMAL SALINE 50ML 50 ML ONE (13:04)
[2020-09-08 17:49] VITALS: BP 208/107
[2020-09-08] MEDS ORDERED: MULT-505 PO (17:52)
[2020-09-08] MEDS ORDERED: CARV6.25 PO (17:52)
[2020-09-08] MEDS ORDERED: LISI40TA PO (17:52)
[2020-09-08] MEDS ORDERED: MEMA10TA PO (17:52)
[2020-09-08] MEDS ORDERED: MAG355OR12 PO (17:52)
[2020-09-08] MEDS ORDERED: MELA5CAP PO (17:52)
[2020-09-08] MEDS ORDERED: CALC11776 PO (17:52)
[2020-09-08] MEDS ORDERED: ACET325T21 PO (17:52)
[2020-09-08] MEDS ORDERED: MAGN400O7 PO (17:52)
[2020-09-08] MEDS ORDERED: IBUP400T18 PO (17:52)
[2020-09-08] MEDS ORDERED: SERT50TA PO (17:52)
[2020-09-08] MEDS ORDERED: LOPE2TAB27 PO (17:52)
[2020-09-08] MEDS ORDERED: LIDO1ADH63 TP (17:52)
[2020-09-08] MEDS ORDERED: FERR240T2 PO (17:52)
[2020-09-08] MEDS ORDERED: NYST15PO9 TP (17:52)
[2020-09-08] MEDS ORDERED: CHOL100013 PO (17:52)
[2020-09-08] MEDS ORDERED: CARB1TAB22 PO (17:52)
[2020-09-08] MEDS ORDERED: LEVO50TA5 PO (17:52)
[2020-09-08] MEDS ORDERED: ACET500T68 PO (17:52)
[2020-09-08] MEDS ORDERED: OMEP20TA63 PO (17:52)
[2020-09-08] MEDS ORDERED: CALC625T12 PO (17:52)
--- NOTE | 2020-09-08 18:08 | NUR ---
PATIENT IS A 89 Y O FEMALE ARRIVED TO ROOM 111 VIA EMS. VS OBTAINED , BP IS 208/107, DR. ARANGO NOTIFIED , ORDERS OBTAINED. PATIENT IS A/O X 3, SLIGHTLY CONFUSED, C/O HEADACHE. PATIENT IS CURRENTLY UP IN A BED AWAKE AND EATING HER DINNER. PATIENT IS A RESIDENT [facility] . PATIENT STATED SHE USES A WALKER. PATIENT DOES REMEMBER SHE FELL ON A FLOOR TODAY AND HER CALLED FOR HELP. PATIENT WAS ORIENTED TO THE ROOM AND HOSPITAL POLICIES. WILL CONTINUE TO MONITOR.
[2020-09-08] MEDS ORDERED: MAGNESIUM HYDROXIDE 2,400 MG/30 ML ORAL.SUSP. PO PRN (18:30)
[2020-09-08] MEDS ORDERED: ACETAMINOPHEN 325 MG TABLET PO PRN (18:30)
[2020-09-08] MEDS ORDERED: MAG HYDROX/AL HYDROX/SIMETH 30 ML ORAL.SUSP PO PRN (18:30)
[2020-09-08 18:31] VITALS: BP 180/99
[2020-09-08] MEDS ORDERED: LOPERAMIDE 2 MG CAPSULE PO PRN (18:45)
[2020-09-08] MEDS ORDERED: CALCIUM CARBONATE 500 MG TAB.CHEW PO PRN (18:45)
--- NOTE | 2020-09-08 19:06 | HP ---
ADMIT DATE: 09/08/2020 HISTORY OF PRESENT ILLNESS: The patient is an 89-year-old female patient, who was brought to the Emergency Room with altered mental status and possible stroke. The patient has moved recently from [place] with her to live in [facility] and apparently she was seen normal at around 9:20 a.m. this morning when she went to the clinic facility at her snf where she sat down and went unresponsive. When paramedics arrived, she was unresponsive to painful stimulus only. By the time she arrived, she was becoming very well and complained of headaches and nausea. The patient received 4 mg of Zofran prior to arrival. Paramedics believe there is right sided facial droop. Therefore, code stroke was activated. Upon initial evaluation in the Emergency Room, the ER physician did not appreciate any right sided facial droop. She did complain of abdominal pain and nausea. The patient's blood pressure was in the 90s per EMS and her blood sugar was in the 190s. She was extensively investigated and was admitted with syncopal episode, bradycardia, abdominal pain and was found to have an ovarian mass. Her EKG showed that she was in sinus bradycardia. In fact, her heart rate was 47 beats per minute with left anterior fascicular block and anteroseptal myocardial infarction. She has prominent Q-waves in V1, V2, V3; however, the patient herself denied any chest pain. She has had a CT scan of the head, which showed no evidence of acute intraparenchymal hemorrhage or infarct, generalized parenchymal volume loss is present along with chronic infarct in the superior right frontal lobe and extensive white matter low density compatible with chronic ischemic microvascular disease. Her ventricles are within normal limits. Basilar cisterns are patent. No pathological extraaxial fluid collection or mass. The orbital contents were unremarkable. Visualized paranasal sinuses and mastoid air cells are clear. The calvarium and skull base are intact. The patient was admitted. Her blood pressure was found to be extremely high, although according to the patient herself, she said that she has taken her medication, which consists of Coreg and lisinopril. PAST MEDICAL HISTORY: Significant for iron deficiency anemia, hypothyroidism. She has also type 2 diabetes mellitus with unspecified complications. She has Parkinson's disease, major depressive disorder, dementia with behavioral disturbances. She has obstructive sleep apnea, has peripheral neuropathy, essential primary hypertension, cerebral infarction, chronic sinusitis, gastroesophageal reflux disease, chronic constipation, spinal stenosis and other intervertebral disk degeneration in the lumbar area, has a previous history of rhabdomyolysis, osteoporosis, recurrent, but without current pathological fracture or stress incontinence, generalized abdominal pain, nausea and vomiting, age-related physical debility. PAST SURGICAL HISTORY: Unobtainable. The patient was unable to provide with any history. ALLERGIES: She has no known drug allergies. MEDICATIONS: She is currently on acetaminophen 650 mg every 4 hours as needed, carbidopa/levodopa 25/100 one tablet 3 times a day, chewable vitamin 1 tablet once a day, cholecalciferol 10,000 units once a day, Coreg 6.25 mg twice a day, ferrous gluconate 1 tablet by mouth one time a day, fiber tablets for calcium polycarbophil 625 mg once a day. She is on levothyroxine sodium 50 mcg once a day, Lidoderm patch applied topical transdermal in the morning and off at nighttime. She is on ibuprofen 400 mg by mouth at bedtime. She is on lisinopril 40 mg once a day; loperamide 2 mg, she takes 4 mg by mouth with a total of 60 mg in 24 hours. She is on Maalox suspension 30 mL every 4 hours as needed, milk of magnesia 30 mL p.o. daily p.r.n. for constipation, Namenda 5 mg twice a day, nystatin powder applied topically to skin folds every 4 hours. She is on Prilosec 40 mg once a day, Tums tablet 500 mg tablet every 4 hours and Zoloft 50 mg at bedtime. FAMILY HISTORY: Unremarkable. She has 2 brothers, both , 1 younger, 1 older. Both her parents are , but she does not know their age of or the cause of their . SOCIAL HISTORY: She is . She has 1 daughter and 3 sons. She never smoked and does not drink alcohol or use recreational drugs. She has been a housewife. She currently lives with her as they both moved from [place] to be in assisted living facility. PHYSICAL EXAMINATION: GENERAL: On arrival to the Emergency Room, the patient was started to wake up and she was responsive according to the ER physician. She was somewhat pale, but no jaundice, cyanosis or thyromegaly. No jugular venous distention or limb edema. VITAL SIGNS: Her heart rate was 47, blood pressure was 130/80, temperature was 96, respiratory rate was 22 and oxygen saturation was 93%. HEAD, EYES, EARS, NOSE AND THROAT: Normocephalic, atraumatic. NECK: Supple. HEART: Normal first and second heart sounds. No gallop, rub or murmur. CHEST: Clear to auscultation. No crepitation or rhonchi. ABDOMEN: Distended, soft, nontender. No guarding or rigidity. No organomegaly. All hernial orifice intact. Bowel sounds normal. NEUROLOGIC: She was alert, but she was initially mildly confused, generalized weakness without lateralizing deficit. However, when I saw her in the hospital, she was awake, alert, responding. She is alert, oriented to time, place and person. All her cranial nerves intact. EXTREMITIES: She moves extremities without difficulty. She stated that she always uses a walker at home. EXTREMITIES: Showed no clubbing, cyanosis or edema. PSYCHOLOGICAL: Her affect, judgment and mood were normal. LABORATORY DATA: Her EKG showed that she was in sinus bradycardia with left axis deviation, first-degree AV block as well as old anterior fascicular block as well as old anteroseptal infarction. Her CT scan of the head was essentially unremarkable and showed no acute intracranial pathology. Her chest x-ray showed the cardiac silhouette is mildly enlarged. The thoracic aorta is tortuous. Atherosclerotic calcification of thoracic aorta is seen. No acute pulmonary infiltrate is seen. No pneumothorax or pleural effusion is noted. The osseous structures are unchanged. Her CT scan of the abdomen and pelvis without contrast basically showed that the lower chest, mild atelectasis in the left lower lobe. The heart is normal in size. The liver is normal in size. There is a 5 mm hypodensity in the right hepatic lobe, too small to characterize. The gallbladder and biliary tree; the gallbladder is surgically absent. Bile ducts are unremarkable. The pancreas, spleen, adrenal glands are normal. The kidneys are normal in size. No hydronephrosis or nephrolithiasis. Ureters and bladder were normal. Reproductive organs. Her uterus is surgically absent and there is a 7.7 x 4 x 4.3 cm predominantly solid right adnexal mass with a small cystic component, this appears loop of ileum. No left adrenal masses. The stomach, small bowel and colon, large hiatal hernia. There is no small-bowel obstruction. The appendix not visualized. Large volume stool in the left hemicolon. The colon was otherwise normal. The abdominal aorta is normal in caliber. There is moderate calcified aortoiliac atherosclerosis. There is a 1.3 cm cami hepatis lymph nodes that is nonspecific. The peritoneum and retroperitoneum showed no free air or free fluid. The bones are diffusely demineralized. There is a left greater than right sacroiliac joint sclerosis. There are erosions, ossicular chain on the left, severe facet arthrosis at L3-L4 through L5-S1. There is a grade 1 anterolisthesis of L4 on L5. Multilevel severe degenerative disk disease with mild rightward curvature of the lower lumbar spine. There is canal and foraminal narrowing at multiple levels. This appears most severe at T9-T10 and T10-T11. She has also a small fat containing umbilical hernia. IMPRESSION: 1. A 7 cm predominantly solid right adnexal mass. This is suspicious for ovarian neoplasm. 2. Large hiatal hernia. 3. Advanced lower thoracic and lumbar degenerative disk disease. 4. Moderate calcified aortoiliac atherosclerosis. The patient was basically admitted with syncopal episode. She initially was bradycardic. Her blood pressure was normal. However, by the time she arrived to the hospital, her blood pressure was extremely high. The patient stated that she has taken her medication. My plan is to treat her with one dose of amlodipine this evening after waiting for an hour or two to make sure that she is calmer and I would consult the school cafeteria cook head. We will continue obviously to monitor her on telemetry as she might go into high-grade heart block that might be the cause of her syncope. I would also consult Dr. Neri for evaluation and treatment. We will arrange for her to have bilateral carotid Doppler ultrasound and I will probably avoid increasing the dose of Coreg given that she has bradycardia and first-degree heart block. MYA ARANGO MD DR: KIERSTEN/caleb JOB#: [id number] / [id number]
[2020-09-08 19:32] VITALS: BP 178/102
--- NOTE | 2020-09-08 19:50 | NUR ---
PT WITH ELEVATED BP 178/102. SPOKE WITH PAMELA, NURSE AT [facility], TO CLARIFY MEDS. PAMELA REPORTS PT DID NOT RECEIVE HER LISINOPRIL 40MG DAILY PRIOR TO ARRIVAL TO ED. NOTIFIED DR. ARANGO OF PT STATUS, ORDERED TO GIVE LISINOPRIL 40MG PO NOW.
[2020-09-08] MEDS: ACETAMINOPHEN 500 MG TABLET PO SCH (20:33)
[2020-09-08] MEDS: MELATONIN 3 MG TABLET PO SCH (20:33)
[2020-09-08] MEDS: MEMANTINE 10 MG TABLET. PO SCH (20:33)
[2020-09-08] MEDS: SERTRALINE 50 MG TABLET. PO SCH (20:33)
[2020-09-08] MEDS: CARBIDOPA/LEVODOPA 25/100MG TABLET PO SCH (20:33)
[2020-09-08] MEDS: LISINOPRIL 20 MG TABLET PO SCH (20:34)
[2020-09-08] MEDS: NYSTATIN TOPICAL POWDER 15GM BOTTLE. TP SCH (20:36)
[2020-09-08 21:48] VITALS: BP 159/95
[2020-09-09] MEDS: LEVOTHYROXINE 50 MCG TABLET PO SCH (05:03)
[2020-09-09 06:05] VITALS: BP 171/99
[2020-09-09 06:28] LABS: ALBUMIN 3.6 g/dL (3.4-5.0); CALCIUM 9.2 mg/dL (8.5-10.1); CREATININE 0.8 mg/dL (0.6-1.0); GFR 67.7; POTASSIUM 3.5 mmol/L (3.5-5.1); TOTAL BILIRUBIN 0.4 mg/dL (0.2-1.0); TOTAL PROTEIN 7.3 g/dL (6.4-8.2)
--- NOTE | 2020-09-09 06:51 | NUR ---
CARDIOLOGY CONSULT CALLED TO DR. TRAN. L/M WITH ANSWERING SERVICE, AWAITING CALL BACK.
--- NOTE | 2020-09-09 08:08 | PDOC2 ---
CARDIAC CONSULT DATE OF CONSULT DOS: DATE: 09/09/20 TIME: 08:04 REASON FOR CONSULT Reason for Consult syncope REFERRING PHYSICIAN Referring Physician Dr. Schmitt SOURCE Source: Chart review, Patient HPI History of Present Illness This is an 89 yo female who presented secondary to syncopal episode. Patient reports she presented due to a fall last week. Reports that she tripped and fell. She denies any loss of consciousness. Per chart review, patient presented with altered mental status. Patient lives at [place] with . She reportedly went to cleaning facility at long term and when she sat down she went unresponsive. EMS was called. Upon their arrival, she was responsive to painful stimuli only. Upon arrival, she was verbal and was complaining of BARRERA and nausea. There were concerns for right-sided facial droop so code stroke was activated. BP low end per EMS. Upon arrival, was slightly bradycardic and blood pressure was elevated. Overnight, no significant bradycardia was noted on tele. Patient denies any chest pain, dizziness, diaphoresis, palpitations, or nausea/vomiting. PAST MEDICAL HISTORY Past Medical History Parkinson's Cardiovascular: HTN Pulmonary: Other (STEFAN) CENTRAL NERVOUS SYSTEM: Dementia GI: GERD Psych: Depression Endocrine: Hypothyroidism PAST SURGICAL HISTORY Past Surgical History: No pertinent history FAMILY HISTORY Family History: Family History Unknown SOCIAL HISTORY Smoke: No ALCOHOL: none Drugs: None CURRENT MEDICATIONS Current Medications Current Medications Ondansetron HCl (Zofran) 4 mg PRN Q4HRS PRN IVP NAUSEA/VOMITING Last administered on 09/08/20at 13:06; Start 09/08/20 at 11:45; Stop 09/09/20 at 11:44 Ceftriaxone Sodium 1 gm/ Sodium Chloride 50 ml @ 100 mls/hr 1X ONCE IV Last administered on 09/08/20at 13:09; Start 09/08/20 at 12:00; Stop 09/08/20 at 12:29; Status DC Sodium Chloride 50 ml @ As Directed STK-MED ONCE .ROUTE ; Start 09/08/20 at 13:04; Stop 09/08/20 at 13:04; Status DC Ceftriaxone Sodium (Rocephin) 1 gm STK-MED ONCE .ROUTE ; Start 09/08/20 at 13:04; Stop 09/08/20 at 13:04; Status DC Acetaminophen (Tylenol) 650 mg PRN Q4HRS PRN PO pain or fever; Start 09/08/20 at 18:30 Acetaminophen (Tylenol) 500 mg TID PO Last administered on 09/08/20at 20:33; Start 09/08/20 at 21:00 Calcium Polycarbophil (Fibercon) 625 mg DAILY PO ; Start 09/09/20 at 09:00 Carbidopa/Levodopa (Sinemet 25/100) 1 tab TID PO Last administered on 09/08/20at 20:33; Start 09/08/20 at 21:00 Levothyroxine Sodium (Synthroid) 50 mcg DAILY06 PO Last administered on 09/09/20at 05:03; Start 09/09/20 at 06:00 Lidocaine (Lidoderm) 1 patch DAILY TP ; Start 09/09/20 at 09:00 Al Hydroxide/Mg Hydroxide (Mylanta Plus Xs) 30 ml PRN Q4HRS PRN PO HEARTBURN / GAS; Start 09/08/20 at 18:30 Magnesium Hydroxide (Milk Of Magnesia) 2,400 mg PRN DAILY PRN PO CONSTIPATION; Start 09/08/20 at 18:30 Memantine (Namenda) 10 mg BID PO Last administered on 09/08/20at 20:33; Start 09/08/20 at 21:00 Nystatin (Nystop) 1 alexsander BID TP ; Start 09/08/20 at 21:00 Sertraline HCl (Zoloft) 50 mg HS PO Last administered on 09/08/20at 20:33; Start 09/08/20 at 21:00 Calcium Carbonate/ Glycine (Tums) 500 mg PRN Q4HRS PRN PO HEARTBURN / GAS; Start 09/08/20 at 18:45 Vitamin D (Vitamin D3) 1,000 unit DAILY PO ; Start 09/09/20 at 09:00 Ferrous Sulfate (Feosol) 325 mg DAILYWBKFT PO ; Start 09/09/20 at 08:00 Lisinopril (Prinivil) 40 mg DAILY PO ; Start 09/09/20 at 09:00; Stop 09/08/20 at 19:50; Status DC Loperamide HCl (Imodium) 2 mg PRN Q4HRS PRN PO DIARRHEA; Start 09/08/20 at 18:45 Melatonin (Melatonin) 4.5 mg QHS PO Last administered on 09/08/20at 20:33; Start 09/08/20 at 21:00 Multivitamins/ Calcium (Thera-M Plus) 1 tab DAILY PO ; Start 09/09/20 at 09:00 Pantoprazole Sodium (Protonix) 40 mg DAILY PO ; Start 09/09/20 at 09:00 Lisinopril (Prinivil) 40 mg DAILY PO Last administered on 09/08/20at 20:34; Start 09/08/20 at 20:15 Active Scripts Active Reported Zoloft (Sertraline Hcl) 50 Mg Tablet 1 Tab PO HS Tums Ultra Strength (Calcium Carbonate) 470 Mg Tab.chew 470 Mg PO Q4HRS PRN Prilosec Otc (Omeprazole Magnesium) 20 Mg Tablet.dr 2 Tab PO DAILY Nystatin 15 Gm Powder 1 Alexsander TP BID apply to affected area(s) Namenda (Memantine Hcl) 10 Mg Tablet 1 Tab PO BID Milk Of Magnesia (Magnesium Hydroxide) 400 Mg/5 Ml Oral.susp 30 Ml PO DAILY PRN Melatonin 5 Mg Capsule 1 Cap PO QHS Maalox Maximum Strength Susp (Mag Hydrox/Al Hydrox/Simeth) 355 Ml Oral.susp 30 Ml PO Q4HRS PRN Loperamide (Loperamide Hcl) 2 Mg Tablet 2 Tab PO Q4HRS PRN Lisinopril 40 Mg Tablet 1 Tab PO DAILY Lidocaine 1 Each Adh..patch 1 Each TP DAILY Levothyroxine Sodium 50 Mcg Tablet 1 Tab PO DAILY Ibuprofen 400 Mg Tablet 1 Tab PO HS Fiber (Calcium Polycarbophil) 625 Mg Tablet 625 Mg PO DAILY Ferrous Gluconate 240 Mg Tablet 1 Tab PO DAILY Coreg (Carvedilol) 6.25 Mg Tablet 6.25 Mg PO BIDWMEALS Vitamin D3 (Cholecalciferol (Vitamin D3)) 25 Mcg Capsule 25 Mcg PO DAILY Once Daily (Multivitamin) 1 Each Tablet 1 Tab PO DAILY Carbidopa-Levodopa 25-100 Tab (Carbidopa/Levodopa) 1 Each Tablet 1 Tab PO TID Acetaminophen 500 Mg Tablet 1 Tab PO TID Acetaminophen 325 Mg Tablet 2 Tab PO Q4HRS PRN ALLERGIES Allergies: Coded Allergies: No Known Drug Allergies (Unverified , 09/08/20) ROS Review of Systems 14 point ROS conducted with pertinent positives noted above in HPI, although limited due to dementia PHYSICAL EXAM General: Alert, Cooperative, No acute distress, Other (alert to person and place) HEENT: Atraumatic Lungs: Clear to auscultation Heart: Regular rate (tele SR) Abdomen: Soft, No tenderness Extremities: No edema, Normal pulses Skin: No breakdown Neuro: Sensation intact Psych/Mental Status: Mood NL, Other (forgetful ) MUSCULOSKELETAL: Osteoarthritic changes both hands VITALS Vital Signs Vital Signs Date Time Temp Pulse Resp B/P (MAP) Pulse Ox O2 Delivery O2 Flow Rate FiO2 09/09/20 06:05 97.5 60 20 171/99 (123) 95 Room Air LABS LABS Laboratory Tests Test 09/08/20 10:08 09/08/20 10:58 09/08/20 18:23 09/09/20 06:00 White Blood Count 5.7 x10^3/uL (4.0-11.0) Red Blood Count 4.93 x10^6/uL (3.50-5.40) Hemoglobin 13.4 g/dL (12.0-15.5) Hematocrit 41.7 % (36.0-47.0) Mean Corpuscular Volume 85 fL (79-100) Mean Corpuscular Hemoglobin 27 pg (25-35) Mean Corpuscular Hemoglobin Concent 32 g/dL (31-37) Red Cell Distribution Width 16.4 % (11.5-14.5) Platelet Count 225 x10^3/uL (140-400) Neutrophils (%) (Auto) 63 % (31-73) Lymphocytes (%) (Auto) 23 % (24-48) Monocytes (%) (Auto) 10 % (0-9) Eosinophils (%) (Auto) 3 % (0-3) Basophils (%) (Auto) 1 % (0-3) Neutrophils # (Auto) 3.6 x10^3uL (1.8-7.7) Lymphocytes # (Auto) 1.3 x10^3/uL (1.0-4.8) Monocytes # (Auto) 0.5 x10^3/uL (0.0-1.1) Eosinophils # (Auto) 0.2 x10^3/uL (0.0-0.7) Basophils # (Auto) 0.1 x10^3/uL (0.0-0.2) Prothrombin Time 9.6 SEC (9.4-11.4) Prothromb Time International Ratio 0.9 (0.9-1.1) Activated Partial Thromboplast Time 23 SEC (23-33) Sodium Level 141 mmol/L (136-145) 137 mmol/L (136-145) Potassium Level 3.9 mmol/L (3.5-5.1) 3.5 mmol/L (3.5-5.1) Chloride Level 103 mmol/L (98-107) 101 mmol/L (98-107) Carbon Dioxide Level 29 mmol/L (21-32) 28 mmol/L (21-32) Anion Gap 9 (6-14) 8 (6-14) Blood Urea Nitrogen 14 mg/dL (7-20) 13 mg/dL (7-20) Creatinine 1.0 mg/dL (0.6-1.0) 0.8 mg/dL (0.6-1.0) Estimated GFR (Cockcroft-Gault) 52.3 67.7 BUN/Creatinine Ratio 14 (6-20) 16 (6-20) Glucose Level 166 mg/dL (70-99) 101 mg/dL (70-99) Calcium Level 9.2 mg/dL (8.5-10.1) 9.2 mg/dL (8.5-10.1) Total Bilirubin 0.4 mg/dL (0.2-1.0) 0.4 mg/dL (0.2-1.0) Aspartate Amino Transf (AST/SGOT) 16 U/L (15-37) 17 U/L (15-37) Alanine Aminotransferase (ALT/SGPT) 14 U/L (14-59) 12 U/L (14-59) Alkaline Phosphatase 85 U/L (46-116) 79 U/L (46-116) Troponin I Quantitative < 0.017 ng/mL (0-0.055) < 0.017 ng/mL (0-0.055) Total Protein 7.5 g/dL (6.4-8.2) 7.3 g/dL (6.4-8.2) Albumin 3.8 g/dL (3.4-5.0) 3.6 g/dL (3.4-5.0) Albumin/Globulin Ratio 1.0 (1.0-1.7) 1.0 (1.0-1.7) Lipase 134 U/L (73-393) Urine Collection Type U cath Urine Color Yellow Urine Clarity Clear Urine pH 6.0 Urine Specific Clark 1.020 Urine Protein 100 mg/dl (NEG-TRACE) Urine Glucose (UA) Neg mg/dL (NEG) Urine Ketones (Stick) Trace mg/dL (NEG) Urine Blood Trace (NEG) Urine Nitrite Neg (NEG) Urine Bilirubin Neg (NEG) Urine Urobilinogen Dipstick 0.2 mg/dL (0.2 mg/dL) Urine Leukocyte Esterase Neg (NEG) Urine RBC 3-5 /HPF (0-2) Urine WBC 1-4 /HPF (0-4) Urine Squamous Epithelial Cells Occ /LPF Urine Transitional Epithelial Cells Occ /LPF Urine Bacteria Few /HPF (0-FEW) Urine Hyaline Casts Many /HPF Urine Granular Casts Few /HPF Urine Mucus Mod /LPF ASSESSMENT/PLAN Assessment/Plan 1. Syncope; details unclear. CT head without acute findings. 2. Bradycardia, sinus with 1st degree AVB; EKG noted with sinus yahir. No significant bradycardia, pauses, or arrhythmias noted overnight on tele. 3. Accelerated hypertension; better controlled 4. Parkinson's 5. Dementia 6. Hypothyroidism 7. Ovarian mass; new finding per CT Recommendations Agree with holding coreg for now Monitor tele TSH Resume home antiHTN therapy Echo to assess LV systolic function Consider outpatient event monitor Supportive care DARRIUS WARREN APRN Sep 09, 2020 08:08
[2020-09-09] MEDS: LISINOPRIL 20 MG TABLET PO SCH (08:25)
[2020-09-09] MEDS: NYSTATIN TOPICAL POWDER 15GM BOTTLE. TP SCH ×2 (08:25→20:47)
[2020-09-09] MEDS: FERROUS SULFATE 325 MG TABLET. PO SCH (08:25)
[2020-09-09] MEDS: CALCIUM POLYCARBOPHIL 625 MG TABLET PO SCH (08:26)
[2020-09-09] MEDS: MULTIVITAMIN with MINERAL TABLET. PO SCH (08:26)
[2020-09-09] MEDS: PANTOPRAZOLE 40 MG TABLET. PO SCH (08:26)
[2020-09-09] MEDS: MEMANTINE 10 MG TABLET. PO SCH ×2 (08:26→20:47)
[2020-09-09] MEDS: ACETAMINOPHEN 500 MG TABLET PO SCH ×3 (08:26→20:47)
[2020-09-09] MEDS: CARBIDOPA/LEVODOPA 25/100MG TABLET PO SCH ×3 (08:26→20:47)
[2020-09-09] MEDS: LIDOCAINE (700MG/PATCH) PATCH. TP SCH (08:27)
[2020-09-09] MEDS ORDERED: LISINOPRIL 20 MG TABLET PO SCH (09:00)
[2020-09-09] MEDS ORDERED: CHOLECALCIFEROL (VITAMIN D3) 1,000 UNIT TABLET PO SCH (09:00)
[2020-09-09 10:34] VITALS: BP 118/76
[2020-09-09 10:35] VITALS: BP 106/74
[2020-09-09 10:36] VITALS: BP 97/65
--- NOTE | 2020-09-09 11:42 | RAD ---
Bilateral carotid artery duplex ultrasound study without comparison for syncopal episodes. TECHNIQUE AND FINDINGS: Real-time grayscale and color and spectral Doppler valuation of the carotid and vertebral arteries is performed. There is mild multifocal atherosclerosis in the right common carotid artery which is widely patent, with a peak systolic velocity in its mid segment of 85 cm/s. Within the carotid bulb, there is moderate mixed calcified and soft atherosclerotic plaque. Peak systolic velocity is 55 cm per second, constituting a ratio 0.7. Highest end-diastolic velocity of the right internal carotid artery is 12 cm/s. Left common carotid artery is patent with no significant atherosclerosis, but some mild intimal thickening. Peak systolic velocity in the mid common carotid artery is 88 cm/s. There is mild calcified atherosclerosis in the left internal carotid artery, with a peak systolic velocity distally of 72 cm/s, constituting a ratio of 0.8. Highest end-diastolic velocity of the left internal carotid artery is 17 cm per second. Bilateral vertebral arteries are patent and antegrade. IMPRESSION: 1. Mild bilateral internal carotid artery atherosclerosis corresponding to less than 50 percent stenosis in each side. Stenosis calculations for CT, MR and conventional angiography are based upon measurement of the distal ICA diameter in accordance with the NASCET methodology. Stenosis calculations for carotid ultrasound studies are derived from validated velocity criteria which are known to correlate with the NASCET methodology. Electronically signed by: Chandler Garcia MD (09/09/2020 11:39 AM) [id number]
[2020-09-09 14:56] VITALS: BP 143/85
[2020-09-09 16:56] LABS: THYROID STIM HORMONE (TSH) 2.529 uIU/mL (0.358-3.740)
--- NOTE | 2020-09-09 17:32 | NUR ---
EOS NOTE-Pt alert et oriented x 3. Periods of confusion to situation increase as day wears on. She is pleasantly confused, cooperative with cares. Reports pain worst in (R) knee where old bruise area is obvious. Lidoderm patches to be applied to this area with next application. Will continue to observe et note changes.
[2020-09-09 17:49] VITALS: BP 150/80
--- NOTE | 2020-09-09 20:26 | CONS ---
DATE OF CONSULTATION: NEUROLOGY CONSULTATION REFERRING PHYSICIAN: Dr. Schmitt. REASON FOR CONSULTATION: Rule out stroke. HISTORY OF PRESENT ILLNESS: This is an 89-year-old right-handed female, was admitted to the Emergency Room after she was found unresponsive and having nausea and abdominal pain. The patient has moved recently from [place] to [facility]. Apparently, she was found unresponsive. EMS was activated. On arrival, the patient was found to have right facial asymmetry. In the Emergency Room, she was fine and did not have any right facial drooping. At the scene, her systolic blood pressure was in the 90s and blood sugar was 190s. Initial nonenhanced head CT scan revealed evidence of right frontal lobe infarct with extensive small vessel ischemic changes bilaterally. Later on, the patient was found to have bradycardia at 47 with possible ischemic changes on EKG. She was found an ovarian mass. This morning, the patient complains of headaches. She denies chest pain, shortness of breath or palpitation, dysarthria or dysphagia. She just finished her breakfast. She also complains of arthritic pain of the right knee. The patient did fall a week ago and landed forward and had ecchymosis over the right knee. She also complains of numbness and paresthesia of the distal lower extremities. She denies low back pain. The patient used to walk with a walker. She did not have any previous falls. PAST MEDICAL HISTORY: Significant for diabetes mellitus type 2, hypothyroidism, iron deficiency anemia, peripheral neuropathy in the lower extremities, hypertension, history of stroke, GERD, chronic sinusitis, degenerative disk disease of the lumbar spine and intermittent nausea, vomiting, abdominal pain, history of Parkinson disease, obstructive sleep apnea. PAST SURGICAL HISTORY: None. REVIEW OF SYSTEMS: A 10-point review of system was performed as mentioned above in history of present illness. CURRENT MEDICATIONS: Tylenol, carbidopa/levodopa, multivitamins, vitamin D, Coreg, ferrous gluconate, ibuprofen, Lidoderm patches, Tums, nystatin powder, Prilosec. SOCIAL HISTORY: The patient is . She has 3 sons and 1 daughter. She denies smoking, alcohol drinking, or illicit drug use. ALLERGIES: No known drug allergies. FAMILY HISTORY: Noncontributory. PHYSICAL EXAMINATION: GENERAL: Well-developed, well-nourished female, not in acute distress. She weighs 74.5 kilos. VITAL SIGNS: Blood pressure 171/99, respiratory rate 20, pulse is 60, sinus, oxygen saturation 95% on room air, temperature is 97.5. HEENT: Normocephalic, atraumatic, otherwise unremarkable. NECK: Supple. Negative for carotid bruit, lymphadenopathy or thyromegaly. LUNGS: Clear to A and P. CARDIOVASCULAR: Regular rate and rhythm, normal S1, S2. There is no S3, S4. There is a possible 1/6 systolic murmur. ABDOMEN: Soft. Bowel sounds positive. EXTREMITIES: Negative for cyanosis, clubbing or edema. NEUROLOGICAL: MENTAL STATUS: The patient is alert and oriented x 2. The speech is fluent. There is no language dysfunction. Memory, judgment, and abstract thinking are fair. The patient denies hallucination or delusion. CRANIAL NERVES: Visual dillard are full. Pupils are reactive to light and accommodation. The extraocular movements are intact. There is no nystagmus. There is no facial motor or sensory deficit. Hearing is intact bilaterally. The palate is elevated symmetrically. Sternocleidomastoid muscles are powerful bilaterally. The patient shrugs her shoulders symmetrically, protrudes her tongue in the midline without fasciculation or atrophy. MOTOR EXAMINATION: No focal muscle bulk was seen. The tone is normal. The strength is 4/5 throughout. SENSORY EXAMINATION: Revealed diminished pinprick and light touch senses in stocking distributions. Deep tendon reflexes were asymmetric and active with absent Achilles responses bilaterally. GAIT: Not tested at this time. 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 Chest x-ray revealed no acute abnormalities and nonenhanced head CT scan revealed generalized atrophy with extensive small vessel ischemic changes along with right frontal lobe infarct, which is chronic. Cardiovascular sinus rhythm. EKG revealed a sinus rhythm at rate of 76. LABORATORY DATA: CBC revealed white blood cells of 5.7 thousand, hemoglobin 13.4, hematocrit 41.7, platelet count 225,000. Chemistry revealed sodium of 137, potassium 3.5, chloride 101, CO2 20, BUN 13, creatinine 0.8, glucose 101. Calcium 9.2. Troponin level is normal. Urinalysis is negative for urinary tract infections. IMPRESSION: 1. Acute encephalopathy -- resolved, etiology uncertain, rule out transient ischemic attack. 2. Recent fall, rule out syncopal episode versus cardiac arrhythmia. 3. Multiple medical problems include diabetes mellitus type 2, hypertension, GERD, degenerative thoracic and lumbosacral disk disease, hypothyroidism, hypertension, obstructive sleep apnea and possible remote stroke. 4. Parkinson disease. RECOMMENDATIONS: 1. Carotid Doppler study. 2. Physical therapy evaluation. 3. Continue with current management initiated by Dr. Schmitt. 4. The patient may need a Holter monitoring to rule out cardiac arrhythmia. The patient should be on antiplatelet agent if there is no contraindication. M Frederick FOOTE MD DR: MELECIO/caleb JOB#: [id number] / [id number]
[2020-09-09] MEDS: MELATONIN 3 MG TABLET PO SCH (20:47)
[2020-09-09] MEDS: SERTRALINE 50 MG TABLET. PO SCH (20:47)
[2020-09-09] MEDS ORDERED: PATCH REMOVAL. MC SCH (22:00)
[2020-09-10 05:43] VITALS: BP 178/94
[2020-09-10 05:56] LABS: HEMATOCRIT 38.7 % (36.0-47.0); HEMOGLOBIN 12.4 g/dL (12.0-15.5); RED BLOOD COUNT 4.56 x10^6/uL (3.50-5.40); RED CELL DISTRIBUTION WIDTH 16.3 % (11.5-14.5)
[2020-09-10 06:05] LABS: GFR 52.3; POTASSIUM 3.6 mmol/L (3.5-5.1)
[2020-09-10] MEDS: LEVOTHYROXINE 50 MCG TABLET PO SCH (06:17)
[2020-09-10 07:41] VITALS: BP 178/94
[2020-09-10] MEDS: ACETAMINOPHEN 500 MG TABLET PO SCH (07:41)
[2020-09-10] MEDS: FERROUS SULFATE 325 MG TABLET. PO SCH (07:41)
[2020-09-10] MEDS: CARBIDOPA/LEVODOPA 25/100MG TABLET PO SCH (07:41)
[2020-09-10] MEDS: LISINOPRIL 20 MG TABLET PO SCH (07:41)
[2020-09-10] MEDS: MEMANTINE 10 MG TABLET. PO SCH (07:41)
[2020-09-10] MEDS: CALCIUM POLYCARBOPHIL 625 MG TABLET PO SCH (07:42)
[2020-09-10] MEDS: PANTOPRAZOLE 40 MG TABLET. PO SCH (07:42)
[2020-09-10] MEDS: MULTIVITAMIN with MINERAL TABLET. PO SCH (07:42)
--- NOTE | 2020-09-10 07:42 | PDOC ---
CARDIO Progress Notes Date & Time Date of Service DATE: 09/10/20 TIME: 07:40 Time of Evaluation 07:40 Subjective Notes no chest pain, dizziness, diaphoresis, or syncope Vitals Vitals Vital Signs Date Time Temp Pulse Resp B/P (MAP) Pulse Ox O2 Delivery O2 Flow Rate FiO2 09/10/20 05:43 97.7 61 20 178/94 (122) 93 Room Air Weight Weight [ ] Input and Output I.O. Intake and Output 09/10/20 07:00 Intake Total 1250 ml Balance 1250 ml Intake Oral 1250 ml # Voids 5 # Bowel Movements 1 Laboratory Labs Laboratory Tests Test 09/08/20 10:08 09/08/20 10:58 09/08/20 18:23 09/09/20 06:00 White Blood Count 5.7 x10^3/uL (4.0-11.0) Red Blood Count 4.93 x10^6/uL (3.50-5.40) Hemoglobin 13.4 g/dL (12.0-15.5) Hematocrit 41.7 % (36.0-47.0) Mean Corpuscular Volume 85 fL (79-100) Mean Corpuscular Hemoglobin 27 pg (25-35) Mean Corpuscular Hemoglobin Concent 32 g/dL (31-37) Red Cell Distribution Width 16.4 % (11.5-14.5) Platelet Count 225 x10^3/uL (140-400) Neutrophils (%) (Auto) 63 % (31-73) Lymphocytes (%) (Auto) 23 % (24-48) Monocytes (%) (Auto) 10 % (0-9) Eosinophils (%) (Auto) 3 % (0-3) Basophils (%) (Auto) 1 % (0-3) Neutrophils # (Auto) 3.6 x10^3uL (1.8-7.7) Lymphocytes # (Auto) 1.3 x10^3/uL (1.0-4.8) Monocytes # (Auto) 0.5 x10^3/uL (0.0-1.1) Eosinophils # (Auto) 0.2 x10^3/uL (0.0-0.7) Basophils # (Auto) 0.1 x10^3/uL (0.0-0.2) Prothrombin Time 9.6 SEC (9.4-11.4) Prothromb Time International Ratio 0.9 (0.9-1.1) Activated Partial Thromboplast Time 23 SEC (23-33) Sodium Level 141 mmol/L (136-145) 137 mmol/L (136-145) Potassium Level 3.9 mmol/L (3.5-5.1) 3.5 mmol/L (3.5-5.1) Chloride Level 103 mmol/L (98-107) 101 mmol/L (98-107) Carbon Dioxide Level 29 mmol/L (21-32) 28 mmol/L (21-32) Anion Gap 9 (6-14) 8 (6-14) Blood Urea Nitrogen 14 mg/dL (7-20) 13 mg/dL (7-20) Creatinine 1.0 mg/dL (0.6-1.0) 0.8 mg/dL (0.6-1.0) Estimated GFR (Cockcroft-Gault) 52.3 67.7 BUN/Creatinine Ratio 14 (6-20) 16 (6-20) Glucose Level 166 mg/dL (70-99) 101 mg/dL (70-99) Calcium Level 9.2 mg/dL (8.5-10.1) 9.2 mg/dL (8.5-10.1) Total Bilirubin 0.4 mg/dL (0.2-1.0) 0.4 mg/dL (0.2-1.0) Aspartate Amino Transf (AST/SGOT) 16 U/L (15-37) 17 U/L (15-37) Alanine Aminotransferase (ALT/SGPT) 14 U/L (14-59) 12 U/L (14-59) Alkaline Phosphatase 85 U/L (46-116) 79 U/L (46-116) Troponin I Quantitative < 0.017 ng/mL (0-0.055) < 0.017 ng/mL (0-0.055) Total Protein 7.5 g/dL (6.4-8.2) 7.3 g/dL (6.4-8.2) Albumin 3.8 g/dL (3.4-5.0) 3.6 g/dL (3.4-5.0) Albumin/Globulin Ratio 1.0 (1.0-1.7) 1.0 (1.0-1.7) Lipase 134 U/L (73-393) Urine Collection Type U cath Urine Color Yellow Urine Clarity Clear Urine pH 6.0 Urine Specific Runn[place] 1.020 Urine Protein 100 mg/dl (NEG-TRACE) Urine Glucose (UA) Neg mg/dL (NEG) Urine Ketones (Stick) Trace mg/dL (NEG) Urine Blood Trace (NEG) Urine Nitrite Neg (NEG) Urine Bilirubin Neg (NEG) Urine Urobilinogen Dipstick 0.2 mg/dL (0.2 mg/dL) Urine Leukocyte Esterase Neg (NEG) Urine RBC 3-5 /HPF (0-2) Urine WBC 1-4 /HPF (0-4) Urine Squamous Epithelial Cells Occ /LPF Urine Transitional Epithelial Cells Occ /LPF Urine Bacteria Few /HPF (0-FEW) Urine Hyaline Casts Many /HPF Urine Granular Casts Few /HPF Urine Mucus Mod /LPF Triglycerides Level 181 mg/dL (0-150) Cholesterol Level 301 mg/dL (0-200) LDL Cholesterol, Calculated 225 mg/dL (0-100) VLDL Cholesterol, Calculated 36 mg/dL (0-40) Non-HDL Cholesterol Calculated 261 mg/dL (0-129) HDL Cholesterol 40 mg/dL (40-60) Cholesterol/HDL Ratio 7.0 Thyroid Stimulating Hormone (TSH) 2.529 uIU/mL (0.358-3.740) Test 09/10/20 05:40 White Blood Count 7.0 x10^3/uL (4.0-11.0) Red Blood Count 4.56 x10^6/uL (3.50-5.40) Hemoglobin 12.4 g/dL (12.0-15.5) Hematocrit 38.7 % (36.0-47.0) Mean Corpuscular Volume 85 fL (79-100) Mean Corpuscular Hemoglobin 27 pg (25-35) Mean Corpuscular Hemoglobin Concent 32 g/dL (31-37) Red Cell Distribution Width 16.3 % (11.5-14.5) Platelet Count 194 x10^3/uL (140-400) Sodium Level 139 mmol/L (136-145) Potassium Level 3.6 mmol/L (3.5-5.1) Chloride Level 103 mmol/L (98-107) Carbon Dioxide Level 29 mmol/L (21-32) Anion Gap 7 (6-14) Blood Urea Nitrogen 16 mg/dL (7-20) Creatinine 1.0 mg/dL (0.6-1.0) Estimated GFR (Cockcroft-Gault) 52.3 Glucose Level 97 mg/dL (70-99) Calcium Level 9.0 mg/dL (8.5-10.1) Physical Exams HEENT: Neck Supple W Full Motion Chest: Symmetric Lungs: Clear to Auscultation Heart: RRR Abdomen: Soft N/T Extremities: No Edema Neurology: alert, follow commands Assessment Assessment 1. Syncope; details unclear. CT head without acute findings. 2. Bradycardia, sinus with 1st degree AVB; tele with SR/SB lowest 44. No significant pauses or arrhythmias noted on tele. 3. Accelerated hypertension; better controlled 4. Parkinson's 5. Dementia 6. Hypothyroidism 7. Dyslipidemia; LDL 225 7. Ovarian mass; new finding per CT Recommendations Avoid AV mily blocking agents ASA Add statin Outpatient echo to assess LV systolic function Will arrange outpatient event monitor to r/o cardiac arrhythmias Supportive care DARRIUS WARREN APRN Sep 10, 2020 07:42
[2020-09-10] MEDS: LIDOCAINE (700MG/PATCH) PATCH. TP SCH (07:43)
[2020-09-10] MEDS: NYSTATIN TOPICAL POWDER 15GM BOTTLE. TP SCH (07:43)
[2020-09-10] MEDS ORDERED: ASPIRIN ENTERIC COATED 81 MG TABLET.DR. PO SCH (08:00)
[2020-09-10] MEDS ORDERED: LIDOCAINE (700MG/PATCH) PATCH. TD SCH (09:00)
--- NOTE | 2020-09-10 13:28 | NUR ---
DISCHARGE NOTE-Pt PIV's removed, tolerated well. Telemetry discontinued. Transfer packet prepared et report called to nurse at [facility]. [facility] arrived for transport back to facility. Pt assisted to stretcher et assisted onto cot. All possessions sent with patient at this time.
--- NOTE | 2020-09-10 16:07 | PN ---
DATE: 09/09/2020 SUBJECTIVE: The patient is an 89-year-old female patient who was admitted with syncope. She was initially unresponsive, bradycardic and with normal blood pressure. Later on when she arrived to the hospital, the blood pressure was extremely high and we did actually observe her before starting her on lisinopril. When I saw her today, she was resting slightly propped up in bed, in no apparent distress, awake, alert. On questioning her, she did complain of pain in her head and also right knee joint, but denied any other complaint. She apparently has been able to walk with assistance to the bathroom with a walker, and has been seen by the physical therapist. Her heart rate remained stable. Telemetry did not show any arrhythmias or high-grade heart block. Her carotid Doppler ultrasound showed the patient has mild bilateral internal carotid artery atherosclerosis corresponding to less than 50% stenosis in each side. PHYSICAL EXAMINATION: GENERAL: When I examined her this afternoon, she looked well and was clearly in no apparent respiratory distress. No pallor, jaundice, cyanosis or thyromegaly. No jugular venous distention. No lower limb edema. VITAL SIGNS: Her heart rate was 66. Her blood pressure supine was 118/76, sitting was 106/74 and standing was 97/65. The patient, however, was asymptomatic. HEENT: Showed normocephalic, atraumatic. NECK: Supple. HEART: Showed normal first and second heart sounds. No gallop or murmur. CHEST: Clear to auscultation. No crepitation or rhonchi. ABDOMEN: Slightly distended, soft, nontender. NEUROLOGIC: She is confused at times, but otherwise, all her cranial nerves are intact. She moves extremities without difficulty. She does have some bruises over the anterior aspect of the right knee. Her intake over the last 24 hours and output were incompletely recorded. LABORATORY DATA: Her lab work this morning showed a serum sodium 137, potassium 3.5, chloride 101, bicarbonate 28, anion gap of 8, BUN 13, creatinine 0.8, estimated GFR was 68 mL per minute. Her glucose was 101, calcium was 9.2. Total bilirubin, AST, ALT, alkaline phosphatase were normal. Total protein 7.3, albumin was 3.6. ASSESSMENT: 1. Syncope with altered mental status, resolved. 2. Accelerated hypertension, has also resolved. OTHER MEDICAL PROBLEMS: Include 1. Type 2 diabetes mellitus that seems to be reasonably controlled. 2. Parkinson's disease. 3. Hypothyroidism. 4. Iron deficiency anemia. 5. Obstructive sleep apnea. 6. Peripheral neuropathy. 7. Hypertension. 8. Gastroesophageal reflux disease. PLAN: We will add Lidoderm patch to her right knee joint. We will continue with physical and occupational therapy. We did consult Dr. Neri to see her also. If she remains stable, she can be discharged back to assisted living facility tomorrow morning. MYA ARANGO MD DR: KIERSTEN/caleb JOB#: [id number] / [id number]
--- NOTE | 2020-09-10 17:50 | DS ---
DATE OF DISCHARGE: 09/10/2020 ATTENDING PHYSICIAN: Dr. Schmitt and Dr. Tracey. FINAL DISCHARGE DIAGNOSES: 1. Syncopal episode, probable vasovagal. 2. Hypotension, resolved. 3. Essential hypertension. 4. Profound dementia. 5. Degenerative disk disease. 6. Incidental finding, 7 cm solid right adnexal mass. 7. Bradycardia, resolved. HISTORY AND PHYSICAL: This is a pleasant 89-year-old female from assisted living at [place]. She had a syncopal episode. She probably had a vasovagal episode. She is a very poor historian as we could not get much history due to her dementia. She was admitted for further evaluation and monitoring, Cardiology and Neurology consultation. PHYSICAL EXAMINATION: Please see the dictated note. PERTINENT LABORATORY AND X-RAY STUDIES: The obligatory CT of the head demonstrated no acute strokes or bleeds. There is generalized parenchymal volume loss with an old chronic infarct in the right frontal lobe, extensive white matter microvascular changes. The chest x-ray was clear without any acute pathology. The CT of the abdomen and pelvis showed a new 7.7 cm x 4 cm x 4.3 cm predominantly solid right adnexal mass with a small cystic component suspicious for ovarian neoplasm. She has a large hiatal hernia in addition. Carotid Doppler studies showed less than 50% stenosis on each side without any compromise of blood flow or hemodynamic compromise. PERTINENT LABORATORY STUDIES: Hemoglobin was 13.4 g/dL, white count 5700. Electrolytes, BUN and creatinine were all within normal range. Nonfasting blood sugar was adequate at 103. Cardiac enzymes negative for coronary ischemia. COURSE IN THE HOSPITAL: The patient was admitted. We held her Coreg for a day and then restarted due to increase in blood pressure. Diet was advanced. She did have Neurology and Cardiology evaluation. At this time, I tried to contact her son who is out of town regarding the finding of the ovarian mass. At this time, the best thing is to do nothing since she would not be a surgical candidate; this is something that he needs to be aware of and I will make sure that I contact him at the time of discharge. On the third hospital day, she was back to her baseline. Her blood pressure and vital signs were quite stable. She was afebrile. Her heart rate was managed 76 and regular, her oxygen saturations were 93% on room air. Therefore, she was discharged back to the assisted living along with home health care. She will continue most of her home meds including Tylenol, calcium, Sinemet, Coreg 6.25 mg b.i.d., cholecalciferol, Synthroid, Lidoderm patch, loperamide, magnesium, melatonin, Namenda, omeprazole and Zoloft doses unchanged. For now, we held her ibuprofen and ferrous gluconate as this is not necessary. She still remains a full code. I will try to discuss this with the son. I do not know who has power of transactional attorney. In any event, the patient was discharged from our hospital in stable condition with explicit instructions and followup care. TOTAL DISCHARGE TIME SPENT: 39 minutes. AMALIA TRACEY MD DR: JUAN PABLO/caleb JOB#: [id number] / [id number]
[2020-09-10] MEDS ORDERED: ATORVASTATIN CALCIUM 20 MG TABLET PO SCH (21:00)
--- NOTE | 2020-09-10 22:38 | PN ---
DATE: 09/10/2020 ATTENDING PHYSICIAN: Dr. Schmitt. SUBJECTIVE: The patient remains pleasantly confused. She denies any shortness of breath or pain. OBJECTIVE FINDINGS: VITAL SIGNS: Blood pressure today is 178/94, pulse 61 and regular. She is afebrile. Oxygen saturation 93% on room air. HEENT: Head is without trauma. The pupils are reactive. Sclerae nonicteric. Oropharynx is clear. NECK: Supple, no bruits identified. LUNGS: Otherwise clear. CARDIOVASCULAR: Showed regular heart tones. No gallops. Peripheral pulses are palpable and full. ABDOMEN: Soft, no guarding. EXTREMITIES: Showed no cyanosis. NEUROLOGIC: Focally intact. PERTINENT LABORATORY DATA: The CT of the abdomen showed a 7 cm solid right adnexal mass, large hiatal hernia. ASSESSMENT: 1. An 89-year-old female with syncopal episode, most likely vasovagal. She was bradycardic at that time and is now in a sinus rhythm. 2. Profound dementia. 3. Incidental finding of ovarian mass, neoplasm until proven otherwise. PLAN: 1. Telemetry monitoring. 2. Cardiology recommendation on the chart. 3. Neurology recommendations appreciated. 4. Recheck COVID swab before she can go back to her assisted living facility. 5. Home meds reviewed. AMALIA TRACEY MD DR: JUAN PABLO/caleb JOB#: [id number] / [id number]
--- NOTE | 2020-09-19 22:18 | PN ---
DATE: 09/10/2020 REFERRING PHYSICIAN: Dr. Schmitt. SUBJECTIVE: The patient denies any new medical or neurological complaints. She denies chest pain, shortness of breath or palpitation, headaches, dysarthria or dysphagia. OBJECTIVE: GENERAL: Well-developed, well-nourished female, not in acute distress. VITAL SIGNS: Blood pressure 170/84, respiratory rate 20, pulse is 61, temperature 97.7, oxygen saturation 93% on room air. HEENT: Normocephalic, atraumatic, otherwise unremarkable. NECK: Supple. Negative for carotid bruit, lymphadenopathy or thyromegaly. LUNGS: Clear to A and P. CARDIOVASCULAR: Regular rate and rhythm, normal S1, S2. There is no S3, S4 or murmur. ABDOMEN: Soft. Bowel sounds positive. EXTREMITIES: Negative for cyanosis, clubbing or edema. NEUROLOGICAL EXAM: Mental Status: The patient is alert and oriented x 3. Speech is fluent. There is no language dysfunction. Cranial nerves are intact. Motor examination: No focal muscle bulk was seen. The tone is normal. The strength is 4/5 throughout. Sensory examination revealed normal pinprick and light touch senses throughout. Deep tendon reflexes were symmetric, active with absent Achilles responses bilaterally. Gait not tested at this time. LABORATORY DATA: CBC revealed white blood cells of 7000, hemoglobin 12.4, hematocrit 38.7, platelet count 194,000. Chemistry revealed sodium of 139, potassium is 3.6, chloride 103, CO2 of 29, BUN 16, creatinine 1 and glucose 97, calcium is 9. Lipid profile revealed high ____, high cholesterol at 301 with elevated LDL at 225 with HDL of 40. Normal TSH. Negative COVID-2 Ag. Carotid Doppler study revealed mild bilateral internal carotid artery atherosclerosis with stenosis estimated less than 70% bilaterally. IMPRESSION: 1. Acute encephalopathy -- resolved, etiology uncertain, rule out transient ischemic attack versus syncope, cardiac arrhythmia. 2. Multiple medical problems include diabetes mellitus type 2, hypertension, hyperlipidemia, gastroesophageal reflux disease, lumbosacral degenerative disk disease, hypothyroidism, obstructive sleep apnea and remote stroke. 3. Parkinson disease. RECOMMENDATIONS: 1. Continue with current management initiated by Dr. Schmitt. 2. Physical therapy evaluation. 3. The patient may need a prolonged Holter monitoring to rule out cardiac arrhythmia. 4. The patient should be on antiplatelet agent as aspirin. There are no contraindications as the patient has chronic small vessel ischemic changes. M Frederick FOOTE MD DR: MELECIO/caleb JOB#: [id number] / [id number]
== END 2020-09-10 13:30 | disposition home health service (06) | DRG 308 ==
LOC: ER 10:29 → 1 SOUTH 11:40 → ER 17:13
PROVIDERS: ADMIT Internal Medicine; ATTEND Internal Medicine
DX: I49.8 Other specified cardiac arrhythmias (principal); G93.41 Metabolic encephalopathy; M62.82 Rhabdomyolysis; D50.9 Iron deficiency anemia, unspecified; E03.9 Hypothyroidism, unspecified; E11.42 Type 2 diabetes mellitus with diabetic polyneuropathy; I95.9 Hypotension, unspecified; F02.80 Dementia in other diseases classified elsewhere, unspecified severity, without behavioral disturbance, psychotic disturbance, mood disturbance, and anxiety; G20 Parkinson's disease; G47.33 Obstructive sleep apnea (adult) (pediatric); I10 Essential (primary) hypertension; I44.0 Atrioventricular block, first degree; I44.4 Left anterior fascicular block; I65.23 Occlusion and stenosis of bilateral carotid arteries; I70.8 Atherosclerosis of other arteries; K21.9 Gastro-esophageal reflux disease without esophagitis; K44.9 Diaphragmatic hernia without obstruction or gangrene; M46.1 Sacroiliitis, not elsewhere classified; M47.9 Spondylosis, unspecified; M81.0 Age-related osteoporosis without current pathological fracture; W01.0XXA Fall on same level from slipping, tripping and stumbling without subsequent striking against object, initial encounter; Z79.899 Other long term (current) drug therapy; Z86.73 Personal history of transient ischemic attack (TIA), and cerebral infarction without residual deficits; F32.9 Major depressive disorder, single episode, unspecified; K59.09 Other constipation; Z20.828 Contact with and (suspected) exposure to other viral communicable diseases; E78.5 Hyperlipidemia, unspecified; M51.37 Other intervertebral disc degeneration, lumbosacral region
CPT/HCPCS: 36415; 70450; 71045; 74176; 80048; 80053; 80061; 81001; 83690; 84443; 84484; 85025; 85027; 85610; 85730; 87426; 93005; 93880; 96374; 96375; J0696; J2405; P9612; 97110; 97530; 97535; 99285-25

== ENCOUNTER 2021-01-26 20:17 | Emergency (ER) | payer MEDICARE ==
[~2021-01-26] VITALS: Ht 162.6 cm; Wt 75.9 kg
[~2021-01-26 20:17] MED LIST: ACET325T21 PO; ACET500T68 PO; CALC11776 PO; CALC625T12 PO; CARB1TAB22 PO; CARV6.25 PO; CHOL100013 PO; FERR240T2 PO; IBUP400T18 PO; LEVO50TA5 PO; LIDO1ADH63 TP; LISI40TA6 PO; LOPE2TAB27 PO; MAG355OR12 PO; MAGN400O7 PO; MELA5CAP PO; MEMA10TA PO; MULT-505 PO; NYST15PO9 TP; OMEP20TA63 PO; SERT50TA PO
--- NOTE | 2021-01-26 20:33 | PHYS DOC ---
Past History Past Medical History: CVA, Dementia, Depression, GERD, Hypertension, Hypothyroid, UTI, Other Additional Past Medical Histor: Parkinsons, Past Surgical History: , Other Additional Past Surgical Histo: Spinal, GI Alcohol Use: None General Adult EDM: Chief Complaint: LOWER EXT PAIN HPI: HPI: "....I fell... It was not today..... Maybe even last week.... I got up in the middle the night.... And I tripped over some stuff my had.... He is now... Was just his stuff.... I banged both knees and kind of hurt this left ankle... Still hurts to try to walk on this left ankle...".. and foot..." Patient is a 89 year old female who presents with above hx and complaints bilateral knee pain, left ankle and left foot pain after a trip and fall. Exact date of the trip and fall is unknown but was not today. Patient is a resident of [place] since 03/12/2020. Patient has past medical history of iron deficient anemia hypothyroidism, diabetes, dementia, behavioral disturbances, depression, Parkinson's, mild cognitive impairment, sleep apnea, peripheral neuropathy, chronic pain, hypertension, cerebral infarction, chronic sinusitis, GERD, constipation, spinal stenosis, degenerative joint and impingement in the lumbar region, rhabdomyolysis, osteoporosis, stress incontinence, chronic abdomen pain, history of urinary tract infections, nausea and vomiting, diarrhea, problems related to life management difficulty unspecified. Patient did have a negative Covid 10/14/2020. The patient normally follows with Dr. Love Review of Systems: Review of Systems: Constitutional: Denies fever or chills Eyes: Denies change in visual acuity HENT: Denies nasal congestion or sore throat Respiratory: Denies cough or shortness of breath Cardiovascular: Denies chest pain or edema GI: Denies abdominal pain, nausea, vomiting, bloody stools or diarrhea : Denies dysuria Musculoskeletal: Complaints of knee, lower leg and ankle pain > Lt side Integument: Denies rash Neurologic: Denies headache, focal weakness or sensory changes Endocrine: Denies polyuria or polydipsia Lymphatic: Denies swollen glands Psychiatric: Denies depression or anxiety Family History: Family History: Noncontributory to presentation Current Medications: Current Meds: See nursing for shelter medications Allergies: Allergies: Allergies Coded Allergies Type Severity Reaction Last Updated Verified No Known Drug Allergies 01/26/21 No Physical Exam: PE: Constitutional: Mild acute distress, non-toxic appearance. [] HENT: Normocephalic, atraumatic, bilateral external ears normal, oropharynx moist, no oral exudates, nose normal. [] Eyes: PERRLA, EOMI, conjunctiva normal, no discharge. Glasses Neck: Normal range of motion, no tenderness, supple, no stridor. [] Cardiovascular:Heart rate regular rhythm, no murmur, PMI to the left Lungs & Thorax: Bilateral breath sounds few basilar crackles auscultation [] Abdomen: Bowel sounds normal, soft, no tenderness, no masses, no pulsatile masses. [] Obese P. Old surgery scars. Skin: Warm, dry, no erythema, no rash. Poor turgor Back: No tenderness, no CVA tenderness. [] Extremities: bilateral leg tenderness, no cyanosis, no clubbing, ROM intact, no edema. Contusions to both knees- appear old. Arthritic changes. Localizes pain to bilateral knees with range of motion and crepitation, can do straight leg lifts bilaterally. Inversion of left ankle increases pain. Left foot squeeze increases pain Neurologic: Alert and oriented X 3, moves extremities on request, decreased pl yoanna sensation , no focal deficits noted. [] Psychologic: Affect anxious l, judgement-has been obvious memory issues, mood normal. [] EKG: EKG: [] Radiology/Procedures: Radiology/Procedures: [address] [address] IMAGING REPORT Signed PATIENT: DIAMOND NANCE ACCOUNT: [id number] : 1930 LOCATION: ER AGE: 89 SEX: F EXAM STATUS: REG ER ORD. PHYSICIAN: DOLLY JEFFERS MD REASON: fall PROCEDURE: FOOT LEFT 3V Examination: 3 views of the bilateral knees, 2 views of the bilateral tibia and fibula and 3 views of the left foot HISTORY: History of history of fall COMPARISON: None available FINDINGS: Moderate joint space loss medial, lateral, patellofemoral compartments. The alignment of the tibia and fibula grossly appears unremarkable. Moderate joint space loss identified in the first MTP joint. There is no acute fracture or dislocation identified. Small posterior calcaneal enthesophyte. IMPRESSION: 1. Moderate tricompartmental degenerative changes knee joint. 2. No acute osseous findings. Electronically signed by: Ruben Barroso MD (01/26/2021 10:02 PM) [id number] DICTATED AND SIGNED BY: RUBEN BARROSO MD DATE: 01/26/212154 CC: DOLLY JEFFERS MD; ROSIBEL LOVE MD ~MTH0 0 [][place] [address] IMAGING REPORT Signed PATIENT: DIAMOND NANCE ACCOUNT: [id number] : 1930 LOCATION: ER AGE: 89 SEX: F EXAM STATUS: REG ER ORD. PHYSICIAN: DOLLY JEFFERS MD REASON: fall PROCEDURE: TIBIA FIBULA BILAT Examination: 3 views of the bilateral knees, 2 views of the bilateral tibia and fibula and 3 views of the left foot HISTORY: History of history of fall COMPARISON: None available FINDINGS: Moderate joint space loss medial, lateral, patellofemoral compartments. The alignment of the tibia and fibula grossly appears unremarkable. Moderate joint space loss identified in the first MTP joint. There is no acute fracture or dislocation identified. Small posterior calcaneal enthesophyte. IMPRESSION: 1. Moderate tricompartmental degenerative changes knee joint. 2. No acute osseous findings. Electronically signed by: Ruben Barroso MD (01/26/2021 10:02 PM) [id number] DICTATED AND SIGNED BY: RUBEN BARROSO MD DATE: 01/26/212154 CC: DOLLY JEFFERS MD; ROSIBEL LOVE MD ~MTH0 0 Heart Score: C/O Chest Pain: N/A Risk Factors: Risk Factors: DM, Current or recent (<one month) smoker, HTN, HLP, family history of CAD, obesity. Risk Scores: Score 0 - 3: 2.5% MACE over next 6 weeks - Discharge Home Score 4 - 6: 20.3% MACE over next 6 weeks - Admit for Clinical Observation Score 7 - 10: 72.7% MACE over next 6 weeks - Early Invasive Strategies Course & Med Decision Making: Course & Med Decision Making Pertinent Labs and Imaging studies reviewed. (See chart for details) Patient push fluids. Patient take vitamin C or fruit juices. Patient take Keflex 500 mg 3 times a day. Patient follow-up urine culture. Patient follow- up primary care. Patient return if any concerns. Ice packs as needed. Impression: 1. Trip and fall 2. Contusions to both knees left ankle and foot 3. Urinary tract infection 4. Dementia 5. Degenerative joint disease [] Dragon Disclaimer: Dragon Disclaimer: This electronic medical record was generated, in whole or in part, using a voice recognition dictation system. Departure Departure: Referrals: ROSIBEL LOVE MD (PCP) Scripts Cephalexin (KEFLEX) 750 Mg Capsule 500 MG PO TID for U for 7 Days, #21 CAP Prov: DOLLY JEFFERS MD 01/27/21 Dragon Disclaimer This chart was dictated in whole or in part using Voice Recognition software in a busy, high-work load, and often noisy Emergency Department environment. It may contain unintended and wholly unrecognized errors or omissions. DOLLY JEFFERS MD Jan 26, 2021 20:33
[2021-01-26] MEDS ORDERED: oxyCODONE/APAP 5/325 1 TAB TABLET PO ONE (21:00)
--- NOTE | 2021-01-26 22:04 | RAD ---
Examination: 3 views of the bilateral knees, 2 views of the bilateral tibia and fibula and 3 views of the left foot HISTORY: History of history of fall COMPARISON: None available FINDINGS: Moderate joint space loss medial, lateral, patellofemoral compartments. The alignment of the tibia an d fibula grossly appears unremarkable. Moderate joint space loss identified in the first MTP joint. T here is no acute fracture or dislocation identified. Small posterior calcaneal enthesophyte. IMPRESSION: 1. Moderate tricompartmental degenerative changes knee joint. 2. No acute osseous findings. Electronically signed by: Ruben Barroso MD (01/26/2021 10:02 PM) [id number]
[2021-01-26 23:49] VITALS: BP 176/91
[2021-01-27 00:20] LABS: CLARITY,URINE HAZY; COLOR,URINE YELLOW; GLUCOSE,URINE NEG (NEG)
[2021-01-27 00:21] LABS: BACTERIA,URINE MANY /HPF (0-FEW); BILIRUBIN,URINE NEG (NEG); NITRITE,URINE POS (NEG); RBC,URINE 0 /HPF (0-2); SQUAMOUS EPITHELIAL CELL,UR OCC /LPF; UROBILINOGEN,URINE 0.2 mg/dL (0.2 mg/dL)
[2021-01-27] MEDS ORDERED: CEPH750C9 PO (00:29)
[2021-01-27] MEDS ORDERED: CEPHALEXIN 250 MG CAPSULE PO ONE (01:00)
== END 2021-01-27 01:02 ==
LOC: ER 20:17
DX: S80.02XA Contusion of left knee, initial encounter (principal); S80.01XA Contusion of right knee, initial encounter; N39.0 Urinary tract infection, site not specified; F03.90 Unspecified dementia, unspecified severity, without behavioral disturbance, psychotic disturbance, mood disturbance, and anxiety; M17.0 Bilateral primary osteoarthritis of knee; K21.9 Gastro-esophageal reflux disease without esophagitis; I10 Essential (primary) hypertension; E03.9 Hypothyroidism, unspecified; Z86.73 Personal history of transient ischemic attack (TIA), and cerebral infarction without residual deficits; F32.9 Major depressive disorder, single episode, unspecified; W01.0XXA Fall on same level from slipping, tripping and stumbling without subsequent striking against object, initial encounter; Y93.89 Activity, other specified; Y92.89 Other specified places as the place of occurrence of the external cause; Y99.8 Other external cause status
CPT/HCPCS: 73564; 73590; 73630; 81001; 87086; 99284; P9612; 99285-25

== ENCOUNTER 2021-02-01 17:29 | Emergency (ER) | payer MEDICARE ==
[~2021-02-01] VITALS: Ht 162.6 cm; Wt 80.0 kg
[~2021-02-01 17:29] MED LIST changes: +CEPH750C9 PO
--- NOTE | 2021-02-01 17:38 | PHYS DOC ---
Past History Past Medical History: Arthritis, CAD, CVA, Dementia, Depression, GERD, Hypertension, Hypothyroid, UTI, Other Additional Past Medical Histor: Parkinsons, Past Surgical History: , Other Additional Past Surgical Histo: Spinal, GI Alcohol Use: None General Adult EDM: Chief Complaint: ALTERED MENTAL STATUS HPI: HPI: ".. I don't know..." Patient is a 89 year old female resident of [facility] who presents with persistent mental status changes since 01/29. Pt. has been a resident of [place] since 03/12/20. Pt. hx of recent UTI and was seen in ED on 01/26/21 for hx of fall and bilateral knee pain. Pt. at that time was found to have suspected UTI and started on Keflex. Pt. did have contusions to both knees but no findings of fx. Pt.at that time was much more interactive . See 01/26/21 report. Pt. today is much less interactive. Does answer questions, but with minimal responses. Patient on 01/29 had a change in mental status and Keflex was DC'd and started on Cipro for possible any in adequate coverage of her previous diagnosis of UTI. Since that time she has had no significant improvement of her baseline mental status which is being somewhat depressed. Patient has history of previous CVAs, dementia, depression, GERD, hypertension, hypothyroidism, recurrent urinary tract infections, Parkinson's disease, generalized mild cognitive impairment, sleep apnea, peripheral neuropathy, chronic pain, chronic sinusitis, history of 7centimeter right adrenal mass, hiatal hernias, degenerative joint changes, spinal stenosis, osteoporosis, stress incontinence, chronic abdomen pain, iron deficient anemia, and generalized problems of age disabilities and gait disorder. Patient did have a negative Covid on 10/14/2020. Patient normally follows with Dr. Love. Currently moves all extremities on request. Does answer questions appropriately but with minimal responsiveness and or with simple yes and no responses. No other recent med changes at that then changed to Cipro antibiotic. Review of Systems: Review of Systems: Constitutional: Denies fever or chills Eyes: Denies change in visual acuity HENT: Denies nasal congestion or sore throat Respiratory: Denies cough or shortness of breath Cardiovascular: Denies chest pain or edema GI: Denies abdominal pain, nausea, vomiting, bloody stools or diarrhea : Denies dysuria Musculoskeletal: Denies back pain or joint pain Integument: Denies rash Neurologic: Denies headache, focal weakness or sensory changes Endocrine: Denies polyuria or polydipsia Lymphatic: Denies swollen glands Psychiatric: Denies depression or anxiety Family History: Family History: Has history of 2 brothers both .There is limit family history currently available. Current Medications: Current Meds: See nursing for long term medication Allergies: Allergies: Allergies Coded Allergies Type Severity Reaction Last Updated Verified No Known Drug Allergies 01/26/21 No Physical Exam: PE: Constitutional: no acute distress, non-toxic appearance. Overall mental status is obviously depressed from previous visit to the emergency department 01/26. HENT: Normocephalic, atraumatic, bilateral external ears normal, oropharynx moist, no oral exudates, nose normal. [] Eyes: PERRLA, EOMI, conjunctiva normal, no discharge. [] Neck: Normal range of motion, no tenderness, supple, no stridor. [] Cardiovascular: Bradycardic heart rate regular rhythm, no murmur, PMI to the left Lungs & Thorax: Bilateral breath sounds equal apex with few scattered wheezes and basilar crackles auscultation [] Abdomen: Bowel sounds decreased mild distention, soft, no tenderness, no masses, no pulsatile masses. [] Skin: Warm, dry, no erythema, no rash. Poor turgor Back: No tenderness, no CVA tenderness. [] Extremities: No tenderness, no cyanosis, no clubbing, ROM intact, no edema. Arthritic changes Neurologic: Alert and oriented to name and knows she is at a hospital, does move all extremities on request, does have distal sensory but appears to be markedly decreased in feet, no gross focal deficits noted as compared to previous exam on 01/26. Overall responsiveness is decreased. DTRs are +2 at patella and brachial. Newsroom Intern equal. Unable to get her to a complete neuro exam has give way weakness in both arms and legs. Psychologic: Affect flat, judgement impaired, markedly more memory issues, mood appears depressed, EKG: EKG: My interpretation EKG shows a sinus bradycardia rhythm [] at 57 bpm. There is a slightly prolonged LA interval at 318 ms. There is some leftward axis. There is nonspecific changes. No findings of acute STEMI of contralateral changes no acute changes as compared to prior EKGs on file. Radiology/Procedures: Radiology/Procedures: [address] [address] IMAGING REPORT Signed PATIENT: DIAMOND NANCE ACCOUNT: [id number] : 1930 LOCATION: ER AGE: 89 SEX: F EXAM STATUS: REG ER ORD. PHYSICIAN: DOLLY JEFFERS MD REASON: Dyspnea, confusion, unable to follow breathing directions PROCEDURE: PORTABLE CHEST 1V Exam: Chest one view INDICATION: Dyspnea TECHNIQUE: Frontal view of the chest Comparisons: 09/08/2020 FINDINGS: The cardiomediastinal silhouette and pulmonary vessels are within normal limits. The lung and pleural spaces are clear. IMPRESSION: No acute cardiopulmonary process. Electronically signed by: South Godwin MD (02/01/2021 7:44 PM) [facility] DICTATED AND SIGNED BY: SOUTH GODWIN MD DATE: 02/01/211941 CC: DOLLY JEFFERS MD; ROSIBEL LOVE MD ~MTH0 0 [][address] [address] IMAGING REPORT Signed PATIENT: DIAMODN NANCE ACCOUNT: [id number] : 1930 LOCATION: ER AGE: 89 SEX: F EXAM STATUS: REG ER ORD. PHYSICIAN: DOLLY JEFFERS MD REASON: ALTERED LOC, confusion PROCEDURE: CT HEAD WO CONTRAST CT head without contrast PQRS statement: CT scans at this facility use dose reduction including either automated exposure control, iterative reconstructions, and /or weight based radiation dosing via mA and kV modification when appropriate to reduce radiation dose to as low as reasonably achievable. HISTORY: Altered level of consciousness, confusion. COMPARISON: CT head December 09, 2019. CT head findings: Small subcentimeter chronic bilateral cerebellar infarcts. There is a chronic 3 cm right frontal lobe infarct stable. Generalized brain atrophy. Extensive cerebral white matter hypoattenuation likely changes of chronic small vessel ischemic white matter disease. 2 cm left occipital lobe infarct image 16 is new from the prior exam this could be acute or subacute. No intracranial hemorrhage, mass or hydrocephalus. Orbits, mastoids and bones are unremarkable. IMPRESSION: 1. 2 cm hypodense ischemic infarct of the left occipital lobe is new since the prior study from August 2020 likely is acute or subacute. No hemorrhage. 2. Other chronic brain infarcts are stable as described above. FOR INTERNAL CODING PURPOSES Critical result: Findings discussed with Dr. Ceron at 02/01/2021 5:46 PM. RESULT CODE: (C) Electronically signed by: Samantha Jimenez MD (02/01/2021 5:47 PM) [id number] DICTATED AND SIGNED BY: SAMANTHA JIMENEZ MD DATE: 02/01/211742 CC: DOLLY JEFFERS MD; ROSIBEL LOVE MD ~MTH0 0 Heart Score: C/O Chest Pain: N/A HEART Score for Chest Pain: HEART Score for Chest Pain Response (Comments) Value History Slighlty/Non-Suspicious 0 ECG Normal 0 Age > 65 2 Risk Factors 1 or 2 Risk Factors 1 Troponin < Normal Limit 0 Total 3 Risk Factors: Risk Factors: DM, Current or recent (<one month) smoker, HTN, HLP, family history of CAD, obesity. Risk Scores: Score 0 - 3: 2.5% MACE over next 6 weeks - Discharge Home Score 4 - 6: 20.3% MACE over next 6 weeks - Admit for Clinical Observation Score 7 - 10: 72.7% MACE over next 6 weeks - Early Invasive Strategies Course & Med Decision Making: Course & Med Decision Making Pertinent Labs and Imaging studies reviewed. (See chart for details) Discussed history, presentation, testing and treatment plan with - will accept pt in transfer to [facility] for further eval and possible MRI. Neurology consults. Pt.is listed as Full code. Impression: 1. Altered mental status change since 01/29 2. CVA-left occipital Infarct as compared to CT completed in August 2000 - Suspect Sub Acute 3. Hx of Recent UTI- ( Meds changed to Cipro on 01/29- suspected UTI as cause of Altered Mental Status on 01/29) 4. Hx. of Dementia 5. Hx.and findings of Multiple Old CVA-s, bilateral cerebellar infarcts. [] Dragon Disclaimer: Narcisa Disclaimer: This electronic medical record was generated, in whole or in part, using a voice recognition dictation system. Departure Departure: Referrals: ROSIBEL LOVE MD (PCP) DOLLY JEFFERS MD Feb 01, 2021 17:38
--- NOTE | 2021-02-01 17:50 | RAD ---
CT head without contrast PQRS statement: CT scans at this facility use dose reduction including either automated exposure cont rol, iterative reconstructions, and /or weight based radiation dosing via mA and kV modification when appropriate to reduce radiation dose to as low as reasonably achievable. HISTORY: Altered level of consciousness, confusion. COMPARISON: CT head December 09, 2019. CT head findings: Small subcentimeter chronic bilateral cerebellar infarcts. There is a chronic 3 cm right frontal lobe infarct stable. Generalized brain atrophy. Extensive cerebral white matter hypoatt enuation likely changes of chronic small vessel ischemic white matter disease. 2 cm left occipital lo be infarct image 16 is new from the prior exam this could be acute or subacute. No intracranial hemor rhage, mass or hydrocephalus. Orbits, mastoids and bones are unremarkable. IMPRESSION: 1. 2 cm hypodense ischemic infarct of the left occipital lobe is new since the prior study from 2019 likely is acute or subacute. No hemorrhage. 2. Other chronic brain infarcts are stable as described above. FOR INTERNAL CODING PURPOSES Critical result: Findings discussed with Dr. Ceron at 02/01/2021 5:46 PM. RESULT CODE: (C) Electronically signed by: Hal Henderson MD (02/01/2021 5:47 PM) [id number]
[2021-02-01] MEDS ORDERED: ASPIRIN RECTAL 300 MG SUPP. PR ONE (18:00)
[2021-02-01 18:25] LABS: BASO # 0.1 x10^3/uL (0.0-0.2); BASO % 1 % (0-3); EOS # 0.2 x10^3/uL (0.0-0.7); EOS % 3 % (0-3); HEMOGLOBIN 12.9 g/dL (12.0-15.5); LYMPH # 2.1 x10^3/uL (1.0-4.8); LYMPH % 27 % (24-48); MEAN CORPUSCULAR HEMOGLOBIN 28 pg (25-35); MEAN CORPUSCULAR HGB CONC 32 g/dL (31-37); MEAN CORPUSCULAR VOLUME 85 fL (79-100); MONO # 0.8 x10^3/uL (0.0-1.1); MONO % 11 % (0-9); NEUT # 4.6 x10^3uL (1.8-7.7); NEUT % 59 % (31-73); PLATELET COUNT 235 x10^3/uL (140-400); RED BLOOD COUNT 4.69 x10^6/uL (3.50-5.40); RED CELL DISTRIBUTION WIDTH 16.8 % (11.5-14.5); WHITE BLOOD COUNT 7.8 x10^3/uL (4.0-11.0)
[2021-02-01 18:40] LABS: CALCIUM 9.2 mg/dL (8.5-10.1); CREATININE 1.1 mg/dL (0.6-1.0); GFR 46.9
[2021-02-01 19:00] LABS: AMPHETAMINE/METHAMPHETAMINE NEG (NEG); BARBITURATES NEG (NEG); BENZODIAZEPINES NEG (NEG); CANNABINOIDS NEG (NEG); COCAINE NEG (NEG); METHADONE NEG (NEG); OPIATES NEG (NEG); PHENCYCLIDINE NEG (NEG)
[2021-02-01 19:12] LABS: BACTERIA,URINE 0 /HPF (0-FEW); BILIRUBIN,URINE NEG (NEG); CLARITY,URINE CLEAR; COLOR,URINE YELLOW; GLUCOSE,URINE NEG (NEG); NITRITE,URINE NEG (NEG); RBC,URINE 0 /HPF (0-2); UROBILINOGEN,URINE 0.2 mg/dL (0.2 mg/dL); WBC,URINE 0 /HPF (0-4)
--- NOTE | 2021-02-01 19:46 | RAD ---
Exam: Chest one view INDICATION: Dyspnea TECHNIQUE: Frontal view of the chest Comparisons: 09/08/2020 FINDINGS: The cardiomediastinal silhouette and pulmonary vessels are within normal limits. The lung and pleural spaces are clear. IMPRESSION: No acute cardiopulmonary process. Electronically signed by: South Clifford MD (02/01/2021 7:44 PM) [facility]
--- NOTE | 2021-02-01 20:17 | EKG ---
[address] [address] Test Date: 2021-02-01 Test Time: 17:59:56 Pat Name: DIAMOND NANCE Department: Room: Gender: F Batt Packer: : 1930 Requested By: DOLLY JEFFERS Order Number: [id number] Reading MD: Measurements Intervals Thayer Rate: 57 P: 45 MT: 318 QRS: -7 QRSD: 88 T: 21 QT: 434 QTc: 425 Interpretive Statements SINUS RHYTHM PROLONGED MT INTERVAL LEFTWARD AXIS QRS(T) CONTOUR ABNORMALITY CONSISTENT WITH INFERIOR INFARCT PROBABLY OLD ABNORMAL ECG RI6.02 No previous ECG available for comparison
[2021-02-01] MEDS ORDERED: HEPARIN 25,000UTS/250ML PREMIX 250 ML IV PRN (20:30)
[2021-02-01] MEDS ORDERED: NITROGLYCERIN OINT 1 GM PACKET. TP ONE (20:30)
[2021-02-02 01:03] VITALS: BP 141/66
== END 2021-02-02 01:54 | disposition short-term general hospital (02) ==
LOC: ER 17:29
DX: R41.82 Altered mental status, unspecified (principal); F03.90 Unspecified dementia, unspecified severity, without behavioral disturbance, psychotic disturbance, mood disturbance, and anxiety; K21.9 Gastro-esophageal reflux disease without esophagitis; E03.9 Hypothyroidism, unspecified; I10 Essential (primary) hypertension; I25.10 Atherosclerotic heart disease of native coronary artery without angina pectoris; F32.9 Major depressive disorder, single episode, unspecified; Z86.73 Personal history of transient ischemic attack (TIA), and cerebral infarction without residual deficits; Z87.440 Personal history of urinary (tract) infections
CPT/HCPCS: 36415; 70450; 71045; 80048; 80307; 81001; 82550; 83735; 83880; 84484; 85025; 85610; 85730; 86141; 87040; 93005; 99285-25

== ENCOUNTER 2021-02-24 10:46 | Observation (INO) | payer MEDICARE ==
[~2021-02-24] VITALS: Ht 157.5 cm; Wt 75.6 kg
[2021-02-24] MEDS ORDERED: IV NORMAL SALINE 1,000ML 1,000 ML IV ONE (11:00)
--- NOTE | 2021-02-24 11:02 | RAD ---
CT STROKE HEAD W/O Clinical indications: Reason: syncope, CODE STROKE COMPARISON: February 01, 2021. Technique: Noncontrast axial cross sectional scanning of the head was performed. PQRS compliance Statement One or more of the following individualized dose reduction techniques were utilized for this study: 1. Automated exposure control 2. Adjustment of the mA and/or kV according to patient size 3. Use of iterative reconstruction technique Findings: No acute intracranial hemorrhage or midline shift or mass-effect or hydrocephalus or extra- axial fluid collection is seen. Again seen is moderate to severe bilateral periventricular white eliecer er hypodensity consistent with chronic small vessel ischemic disease. Again seen is a moderate-sized old upper right frontal cortical infarct and smaller medial left occipital cortical infarct. No new f ocal hypodense area is seen. No skull fracture or pneumocephalus is seen. No opacification of the mas toid sinuses or the middle ear cavities or the paranasal sinuses is seen. The maxillary sinuses are n ot completely seen in this study. IMPRESSION: No acute intracranial hemorrhage is seen. Old ischemic changes. Stable since February 01, 2021. No new abnormality. FOR INTERNAL CODING PURPOSES Critical result: Findings discussed with the emergency room physician Dr. Vinicio Benavides at 02/24/2021 10:57 AM. RESULT CODE: (C) Electronically signed by: Joseph Dominguez MD (02/24/2021 11:00 AM) [id number]
[2021-02-24 11:19] LABS: BASO # 0.1 x10^3/uL (0.0-0.2); BASO % 1 % (0-3); EOS # 0.3 x10^3/uL (0.0-0.7); EOS % 3 % (0-3); HEMATOCRIT 41.9 % (36.0-47.0); HEMOGLOBIN 13.5 g/dL (12.0-15.5); LYMPH # 1.6 x10^3/uL (1.0-4.8); LYMPH % 19 % (24-48); MEAN CORPUSCULAR HEMOGLOBIN 28 pg (25-35); MEAN CORPUSCULAR HGB CONC 32 g/dL (31-37); MEAN CORPUSCULAR VOLUME 87 fL (79-100); MONO # 0.8 x10^3/uL (0.0-1.1); MONO % 10 % (0-9); NEUT # 5.7 x10^3uL (1.8-7.7); NEUT % 67 % (31-73); PLATELET COUNT 281 x10^3/uL (140-400); RED BLOOD COUNT 4.84 x10^6/uL (3.50-5.40); WHITE BLOOD COUNT 8.5 x10^3/uL (4.0-11.0)
[2021-02-24 11:23] LABS: ANION GAP 14 (6-14); BLOOD UREA NITROGEN 17 mg/dL (7-20); BUN/CREATININE RATIO 13 (6-20); CALCIUM 9.4 mg/dL (8.5-10.1); CARBON DIOXIDE 25 mmol/L (21-32); CHLORIDE 104 mmol/L (98-107); CREATININE 1.3 mg/dL (0.6-1.0); GFR 38.7; GLUCOSE 153 mg/dL (70-99); POTASSIUM 3.9 mmol/L (3.5-5.1); SODIUM 143 mmol/L (136-145)
--- NOTE | 2021-02-24 11:28 | PHYS DOC ---
Past History Past Medical History: Anemia, Arthritis, CAD, Constipation, CVA, Dementia, Depression, Diabetes, GERD, High Cholesterol, Hypertension, Hypothyroid, UTI, Other Additional Past Medical Histor: Parkinsons, SLEEP APNEA; dysphagia; low back pain Past Medical History Limited secondary to dementia Past Surgical History: , Other Additional Past Surgical Histo: Spinal, GI Past Surgical History Limited secondary to dementia Alcohol Use: None Social History Limited secondary to dementia General Adult EDM: Chief Complaint: SYNCOPE HPI: HPI: 89-year-old female presents via EMS from formerly [facility] with report of syncopal episode while patient was trying to do rehab today. Patient with history of recent CVA. Patient reports she recently fell on her left knee with some pain. Patient otherwise without complaint. No history of known chest pain. History of present illness limited secondary to patient's baseline dementia. Review of Systems: Review of Systems: Constitutional: Denies fever or chills Cardiovascular: Denies chest pain; reports syncopal episode GI: Report nausea Musculoskeletal: Reports left knee and upper leg pain Neurologic: Report syncopal episode Review of systems limited secondary to dementia Current Medications: Current Meds: Current Medications Medications (Trade) Dose Ordered Sig/Sarah Start Time Stop Time Status Last Admin Dose Admin Sodium Chloride 1,000 ml @ 1,000 mls/hr 1X ONCE 02/24/21 11:00 02/24/21 11:59 Allergies: Allergies: Allergies Coded Allergies Type Severity Reaction Last Updated Verified No Known Drug Allergies 02/24/21 No Physical Exam: PE: Constitutional: Well developed, well nourished, no acute distress, non-toxic appearance HENT: Normocephalic, atraumatic Eyes: PERRL, EOMI, conjunctiva normal, no discharge Neck: Normal range of motion, no tenderness, supple Lungs & Thorax: No respiratory distress, equal chest rise and fall Abdomen: Soft, no tenderness, no guarding/rebound tenderness/distention Skin: Warm, dry, no erythema, no rash Extremities: Mild left knee tenderness on palpation, possible shortening of left leg in comparison to right, trace bilateral lower extremity edema Neurologic: Alert and oriented X name only, left facial droop, left arm mild weakness, left leg severe weakness, slight slurred speech. Psychologic: Affect flat, judgment abnormal Current Patient Data: Labs: Laboratory Tests Test 02/24/21 10:59 02/24/21 11:04 White Blood Count 8.5 x10^3/uL (4.0-11.0) Red Blood Count 4.84 x10^6/uL (3.50-5.40) Hemoglobin 13.5 g/dL (12.0-15.5) Hematocrit 41.9 % (36.0-47.0) Mean Corpuscular Volume 87 fL (79-100) Mean Corpuscular Hemoglobin 28 pg (25-35) Mean Corpuscular Hemoglobin Concent 32 g/dL (31-37) Red Cell Distribution Width 16.0 % (11.5-14.5) H Platelet Count 281 x10^3/uL (140-400) Neutrophils (%) (Auto) 67 % (31-73) Lymphocytes (%) (Auto) 19 % (24-48) L Monocytes (%) (Auto) 10 % (0-9) H Eosinophils (%) (Auto) 3 % (0-3) Basophils (%) (Auto) 1 % (0-3) Neutrophils # (Auto) 5.7 x10^3uL (1.8-7.7) Lymphocytes # (Auto) 1.6 x10^3/uL (1.0-4.8) Monocytes # (Auto) 0.8 x10^3/uL (0.0-1.1) Eosinophils # (Auto) 0.3 x10^3/uL (0.0-0.7) Basophils # (Auto) 0.1 x10^3/uL (0.0-0.2) Sodium Level 143 mmol/L (136-145) Potassium Level 3.9 mmol/L (3.5-5.1) Chloride Level 104 mmol/L (98-107) Carbon Dioxide Level 25 mmol/L (21-32) Anion Gap 14 (6-14) Blood Urea Nitrogen 17 mg/dL (7-20) Creatinine 1.3 mg/dL (0.6-1.0) H Estimated GFR (Cockcroft-Gault) 38.7 BUN/Creatinine Ratio 13 (6-20) Glucose Level 153 mg/dL (70-99) H Calcium Level 9.4 mg/dL (8.5-10.1) Magnesium Level Pending Total Bilirubin Pending Aspartate Amino Transferase (AST) Pending Alanine Aminotransferase (ALT) Pending Alkaline Phosphatase Pending Creatine Kinase Pending Creatine Kinase MB (Mass) Pending Creatine Kinase MB Relative Index Pending Total Protein Pending Albumin Pending Albumin/Globulin Ratio Pending Glucose (Fingerstick) 160 mg/dL (70-99) H Vital Signs: Vital Signs Date Time Temp Pulse Resp B/P (MAP) Pulse Ox O2 Delivery O2 Flow Rate FiO2 02/24/21 10:55 96/45 (62) EKG: EKG: @1054 Sinus bradycardia at 56bpm, NO ST elevation, QRS 86ms, QT/QTc 418/406ms, wandering baseline noted Radiology/Procedures: Radiology/Procedures: PROCEDURE: CT CODE STROKE HEAD WO CT STROKE HEAD W/O Clinical indications: Reason: syncope, CODE STROKE COMPARISON: February 01, 2021. Technique: Noncontrast axial cross sectional scanning of the head was performed. PQRS compliance Statement One or more of the following individualized dose reduction techniques were utilized for this study: 1. Automated exposure control 2. Adjustment of the mA and/or kV according to patient size 3. Use of iterative reconstruction technique Findings: No acute intracranial hemorrhage or midline shift or mass-effect or hydrocephalus or extra-axial fluid collection is seen. Again seen is moderate to severe bilateral periventricular white matter hypodensity consistent with chronic small vessel ischemic disease. Again seen is a moderate-sized old upper right frontal cortical infarct and smaller medial left occipital cortical infarct. No new focal hypodense area is seen. No skull fracture or pneumocephalus is seen. No opacification of the mastoid sinuses or the middle ear cavities or the paranasal sinuses is seen. The maxillary sinuses are not completely seen in this study. IMPRESSION: No acute intracranial hemorrhage is seen. Old ischemic changes. Stable since February 01, 2021. No new abnormality. FOR INTERNAL CODING PURPOSES Critical result: Findings discussed with the emergency room physician Dr. Vinicio Thomas at 02/24/2021 10:57 AM. RESULT CODE: (C) PROCEDURE: PORTABLE CHEST 1V XR CHEST 1V CLINICAL INDICATIONS: Reason: syncope code stroke. COMPARISON: February 01, 2021 Findings: There has been improvement in the left lung base consolidative infiltrate seen previously. Residual infiltrate is still present however. Right lung field remains clear. No pneumothorax or pleural effusion is seen. The heart size and mediastinum are stable. IMPRESSION: Interval improvement of left lung base consolidative infiltrate. Electronically signed by: Joseph Dominguez MD (02/24/2021 11:54 AM) [id number] PROCEDURE: Left hip 2 views with one view pelvis, left knee 3 views. HISTORY: Pain after a fall. Left knee 3 views were taken of the left knee. There is evidence of osteoarthritis with joint space narrowing medially and mild spurring. There is no fracture or joint effusion. Left hip 2 views with one view pelvis Single view was taken of the pelvis. There is no acute right hip fracture. A pelvic fracture is not identified. A pubic ramus fracture is not identified. There is degenerative change at the SI joints with sclerosis. There are degenerative changes in the lower lumbar spine. AP and lateral views were taken of the left hip. There is mild spurring on the femoral head from mild arthritis. There is no acute fracture at the left hip. IMPRESSION: 1. Osteoarthritis left knee. 2. No fracture or joint effusion left knee. 3. Arthritis left hip with mild spurring. 4. No acute left hip fracture. 5. No acute pelvic fracture. Electronically signed by: David Osullivan MD (02/24/2021 12:52 PM) [id number] Heart Score: C/O Chest Pain: N/A Course & Med Decision Making: Course & Med Decision Making Pertinent Labs and Imaging studies reviewed. (See chart for details) Patient with history of recent stroke presents from formerly [facility] with report of syncopal episode while doing PT. Patient with history of severe left-sided CVA. Patient appears at her baseline. Patient also with history of dementia and is therefore a poor historian. Cannot fully exclude bleed and therefore patient sent immediately for CT head without acute process. BP slightly low upon arrival. Improved with IVF bolus. EKG stable. Labs obtained and posted to chart. Initial troponin within normal limits. Chest x-ray without acute process. Patient also complains of left knee pain. Given patient's positioning there is also some notation of slight shortening of leg. Left hip/pelvis and left knee x-rays therefore obtained without acute finding. Notation of arthritis appreciated. Unable to obtain full orthostatic vital signs as patient with significant left s ided weakness. Laying and sitting VS with significance. Discussed case with Dr. Schmitt (PCP) regarding. Dr. Oskar Brewster Disclaimer: Narcisa Disclaimer: This electronic medical record was generated, in whole or in part, using a voice recognition dictation system. Departure Departure: Impression: Primary Impression: Syncope Qualified Codes: R55 - Syncope and collapse Additional Impression: Left knee pain Qualified Codes: M25.562 - Pain in left knee Disposition: 09 ADMITTED INPATIENT Admitting Physician: Kj Schmitt Condition: STABLE Referrals: ROSIBEL LOVE MD (PCP) VINICIO THOMAS DO February 24, 2021 11:28
[2021-02-24 11:38] LABS: ALBUMIN 3.6 g/dL (3.4-5.0); ALK PHOS 96 U/L (46-116); ALT (SGPT) 21 U/L (14-59); AST (SGOT) 17 U/L (15-37); MAGNESIUM 1.9 mg/dL (1.8-2.4); TOTAL BILIRUBIN 0.4 mg/dL (0.2-1.0); TOTAL PROTEIN 7.1 g/dL (6.4-8.2)
--- NOTE | 2021-02-24 11:57 | RAD ---
XR CHEST 1V CLINICAL INDICATIONS: Reason: syncope code stroke. COMPARISON: February 01, 2021 Findings: There has been improvement in the left lung base consolidative infiltrate seen previously. Residual infiltrate is still present however. Right lung field remains clear. No pneumothorax or pleu ral effusion is seen. The heart size and mediastinum are stable. IMPRESSION: Interval improvement of left lung base consolidative infiltrate. Electronically signed by: Joseph Dominguez MD (02/24/2021 11:54 AM) [id number]
[2021-02-24 12:18] LABS: BACTERIA,URINE 0 /HPF (0-FEW); BILIRUBIN,URINE NEG (NEG); CLARITY,URINE CLEAR; COLOR,URINE YELLOW; GLUCOSE,URINE NEG (NEG); NITRITE,URINE NEG (NEG); RBC,URINE OCC /HPF (0-2); SQUAMOUS EPITHELIAL CELL,UR MOD /LPF; UROBILINOGEN,URINE 0.2 mg/dL (0.2 mg/dL); WBC,URINE OCC /HPF (0-4)
--- NOTE | 2021-02-24 12:54 | RAD ---
Left hip 2 views with one view pelvis, left knee 3 views. HISTORY: Pain after a fall. Left knee 3 views were taken of the left knee. There is evidence of osteoarthritis with joint space narrowing m edially and mild spurring. There is no fracture or joint effusion. Left hip 2 views with one view pelvis Single view was taken of the pelvis. There is no acute right hip fracture. A pelvic fracture is not i dentified. A pubic ramus fracture is not identified. There is degenerative change at the SI joints wi th sclerosis. There are degenerative changes in the lower lumbar spine. AP and lateral views were taken of the left hip. There is mild spurring on the femoral head from mild arthritis. There is no acute fracture at the left hip. IMPRESSION: 1. Osteoarthritis left knee. 2. No fracture or joint effusion left knee. 3. Arthritis left hip with mild spurring. 4. No acute left hip fracture. 5. No acute pelvic fracture. Electronically signed by: David Osullivan MD (02/24/2021 12:52 PM) [id number]
[2021-02-24] MEDS ORDERED: ASPIRIN ENTERIC COATED 325 MG TABLET.DR. PO ONE (13:15)
[2021-02-24] MEDS ORDERED: ONDANSETRON PF 4 MG/2 ML VIAL. IVP PRN (13:30)
[2021-02-24] MEDS ORDERED: DEXTROSE 50% 25 GM / 50ML DISP.SYRIN. IV PRN (13:30)
[2021-02-24 16:13] VITALS: BP 160/79
--- NOTE | 2021-02-24 16:13 | NUR ---
NURSING NOTE ADMIT PT ADMIT TO ROOM 107 FOR DX OF SYNCOPE FROM ED, [facility]AME FROM [facility]. PT HAS BEEN HERE IN THE PAST FOR SAME SYMPTOMS. PT MEDICATION ENTERED CAME FROM FACILITY. PT A&O TO SELF ONLY, CONFUSION ABOUT DATE, PRESIDENT, TIME, SITUATION. BEV CORDOBA.
--- NOTE | 2021-02-24 16:16 | EKG ---
[address] [address] Test Date: 2021-02-24 Test Time: 10:54:34 Pat Name: DIAMOND NANCE Department: Room: Gender: F Auto Machinist: YARELIS : [id number] Requested By: SHUBHAM THOMAS Order Number: [id number] Reading MD: Measurements Intervals Waite Rate: 56 P: NE: QRS: -21 QRSD: 86 T: 35 QT: 418 QTc: 406 Interpretive Statements IRREGULAR RHYTHM, NO P-WAVE FOUND LEFTWARD AXIS QRS(T) CONTOUR ABNORMALITY CONSISTENT WITH ANTEROSEPTAL INFARCT PROBABLY OLD CONSISTENT WITH INFERIOR INFARCT PROBABLY OLD ABNORMAL ECG RI6.02 No previous ECG available for comparison
--- NOTE | 2021-02-24 16:40 | NUR ---
NURSING NOTE THIS NURSE CONTACTED IVAN LEE, PER IVAN LEE, PT IS X1 EXTENSIVE STAND PIVOT TRANSFER TO WHEELCHAIR, PT HAS NO CONTROL OVER LEFT LOWER EXTREMITY. BEV CORDOBA.
[2021-02-24] MEDS: INSULIN LISPRO 300 UNITS/3 ML VIAL. SQ SCH (17:00)
[2021-02-24] MEDS ORDERED: MAGNESIUM HYDROXIDE 2,400 MG/30 ML ORAL.SUSP. PO PRN (17:15)
[2021-02-24] MEDS ORDERED: MAG HYDROX/AL HYDROX/SIMETH 30 ML ORAL.SUSP PO PRN (17:15)
[2021-02-24] MEDS ORDERED: ACETAMINOPHEN 325 MG TABLET PO PRN (17:15)
[2021-02-24] MEDS: CARVEDILOL 6.25 MG TABLET PO SCH (17:35)
[2021-02-24] MEDS ORDERED: LOPERAMIDE 2 MG CAPSULE PO PRN (17:45)
[2021-02-24] MEDS ORDERED: CALCIUM CARBONATE 500 MG TAB.CHEW PO PRN (17:45)
--- NOTE | 2021-02-24 18:30 | HP ---
ADMIT DATE: 02/24/2021 HISTORY OF PRESENT ILLNESS: The patient is an 89-year-old female patient, a resident at [facility] who was brought to the Emergency Room with a syncopal episode according to the EMS. The patient was working with Physical Therapy and reportedly had syncopal episode while the patient was trying to stand up. The patient has a history of recent CVA and she apparently has recently fell on her left knee with some pain. She is otherwise without any other complaint. No history of known chest pain. The patient has advanced dementia. She was evaluated in the Emergency, has had lab work as were unremarkable and her urinalysis was also unremarkable. She has had multiple images including her chest x-ray which was unremarkable. CT scan of the head showed no acute intracranial hemorrhage or any other abnormality. There is no midline shift or mass effect or hydrocephalus or extraaxial fluid collection. Has moderate to severe bilateral periventricular white matter hypodensity consistent with chronic small vessel ischemic disease. X-ray of the pelvis and hip joint as well as left knee showed osteoarthritis of the left knee joint. No fracture or joint effusion in the left knee. Arthritis of the left hip with mild spurring. No acute left hip fracture. No acute pelvic fracture. The patient therefore was admitted for observation. We will reconcile all her medications. We will consult Physical and Occupational Therapy and she remained hemodynamically stable. She might be able to go back to [facility]. PAST MEDICAL HISTORY: Significant for iron deficiency anemia, hypothyroidism, type 2 diabetes mellitus with unspecified complication. She has Parkinson's disease, major depressive disorder, dementia with behavioral disturbances, obstructive sleep apnea, peripheral neuropathy, essential primary hypertension, cerebral infarct, chronic sinusitis, gastroesophageal reflux disease, chronic constipation, spinal stenosis and other intervertebral disk degeneration in the lumbar area. Has a previous history of rhabdomyolysis, osteoporosis, generalized abdominal pain, age-related physical debility. PAST SURGICAL HISTORY: Unobtainable. ALLERGIES: She has no known drug allergies. FAMILY HISTORY: Unremarkable. She has 2 brothers, both , 1 younger and 1 older. Both her parents are , but she does not know their age or the cause of the . SOCIAL HISTORY: She is . She has 1 daughter and 3 sons. She never smoked, does not drink alcohol or use recreational drugs. She has been a housewife. She was living with her as they both moved from [place] to to an assisted living facility, although she herself is living now at [facility]. MEDICATIONS: She is currently on following medications: She is on carvedilol 6.25 mg twice a day, lisinopril 40 mg once a day, acetaminophen 650 mg every 4 hours, sertraline 50 mg at bedtime, carbidopa/levodopa 100/25 one tablet 3 times a day. She is on Namenda 10 mg twice a day, calcium carbonate 450 mg every 4 hours, Maalox maximum strength 30 mL every 4 hours, loperamide 2 tablets every 4 hours, calcium polycarbophil 625 mg daily, magnesium hydroxide, milk of magnesia 30 mL p.o. daily p.r.n. for constipation. She is on omeprazole 20 mg, she takes 2 tablets once a day; levothyroxine 50 mcg once a day; Lidoderm patch apply topically once a day, on for 12 hours, off for 12 hours; cholecalciferol, vitamin D 25 mcg daily; multivitamin 1 tablet once a day; melatonin 5 mg at bedtime. PHYSICAL EXAMINATION: GENERAL: On arrival to the Emergency Room, the patient looked well and was clearly in no apparent respiratory distress. She is somewhat pale, not jaundiced or cyanosis, no lymphadenopathy, no thyromegaly, no jugular venous distention. No limb edema. VITAL SIGNS: Her heart rate was 54, blood pressure was 116/61, temperature was 97.6, respiratory rate was 16, and oxygen saturation was 94% on 2 liters of oxygen. HEAD, EYES, EARS, NOSE AND THROAT: Normocephalic, atraumatic. NECK: Supple. HEART: Showed normal first and second heart sounds, no gallop or murmur. CHEST: Clear to auscultation, no crepitation or rhonchi. ABDOMEN: Distended, soft, nontender. NEUROLOGIC: She is demented and very disoriented in time, place and person. She has left-sided lower extremity weakness that apparently is chronic problem. LABORATORY DATA: Her lab work showed a white cell count of 8500, hemoglobin 13.5, hematocrit 42, MCV 87 and platelet count 281,000. Her chemistry showed a serum sodium 143, potassium 3.9, chloride 104, bicarbonate 25, anion gap of 14, BUN 17, creatinine was 1.3. Estimated GFR was 38 mL per minute. Her glucose 153, calcium was 9.4, magnesium was 1.9. Total bilirubin, AST, ALT, alkaline phosphatase were normal. Her total protein 7.1, albumin 3.6. Her prothrombin time, INR and APTT are normal. ASSESSMENT AND PLAN: In summary, this is an 89-year-old female patient who was admitted with syncope. I resumed all her medications. We will get Physical and Occupational Therapy. We will check her orthostatics and if she remains stable, she might be able to be discharged back to [facility]. TAYLER DR: Gael TID: [id number]
[2021-02-24 19:13] VITALS: BP 160/80
[2021-02-24] MEDS: MELATONIN 3 MG TABLET PO SCH (20:02)
[2021-02-24] MEDS: CARBIDOPA/LEVODOPA 25/100MG TABLET PO SCH (20:02)
[2021-02-24] MEDS: SERTRALINE 50 MG TABLET. PO SCH (20:02)
[2021-02-24] MEDS: MEMANTINE 10 MG TABLET. PO SCH (20:02)
[2021-02-24] MEDS: NYSTATIN TOPICAL POWDER 15GM BOTTLE. TP SCH (21:22)
[2021-02-24 23:29] VITALS: BP 133/80
--- NOTE | 2021-02-25 05:44 | NUR ---
Pt has been incontinent of urine overnight, tolerated brief changes well. Pt able to turn self in bed when instructed. Barrier cream applied to buttocks, as some blanchable redness is noted but not open. Nystatin powder applied to abdominal folds.
[2021-02-25] MEDS: LEVOTHYROXINE 50 MCG TABLET PO SCH (05:55)
[2021-02-25 06:18] VITALS: BP 123/70
[2021-02-25] MEDS: INSULIN LISPRO 300 UNITS/3 ML VIAL. SQ SCH ×3 (08:00→17:00)
[2021-02-25 09:18] VITALS: BP 139/65
[2021-02-25 09:19] VITALS: BP 114/74
[2021-02-25] MEDS: CARVEDILOL 6.25 MG TABLET PO SCH ×2 (09:35→18:18)
[2021-02-25] MEDS: CHOLECALCIFEROL (VITAMIN D3) 1,000 UNIT TABLET PO SCH (09:36)
[2021-02-25] MEDS: CALCIUM POLYCARBOPHIL 625 MG TABLET PO SCH (09:36)
[2021-02-25] MEDS: PANTOPRAZOLE 40 MG TABLET. PO SCH (09:36)
[2021-02-25] MEDS: LISINOPRIL 20 MG TABLET PO SCH (09:36)
[2021-02-25] MEDS: MULTIVITAMIN with MINERAL TABLET. PO SCH (09:36)
[2021-02-25] MEDS: MEMANTINE 10 MG TABLET. PO SCH ×2 (09:36→20:31)
[2021-02-25] MEDS: CARBIDOPA/LEVODOPA 25/100MG TABLET PO SCH ×3 (09:36→20:31)
[2021-02-25] MEDS: LIDOCAINE (700MG/PATCH) PATCH. TP SCH (09:37)
[2021-02-25] MEDS: NYSTATIN TOPICAL POWDER 15GM BOTTLE. TP SCH ×2 (09:37→20:31)
--- NOTE | 2021-02-25 09:37 | DS ---
DATE OF DISCHARGE: 02/25/2021 ATTENDING PHYSICIAN: Dr. Schmitt. FINAL DISCHARGE DIAGNOSES: 1. Near syncopal episode. 2. Underlying Parkinson's disease. 3. Dementia. 4. Essential hypertension. 5. Gastroesophageal reflux. 6. Spinal stenosis. 7. Degenerative arthritis. 8. Generalized debilitation. 9. Iron deficiency anemia. 10. Type 2 diabetes. 11. Obstructive sleep apnea by history. 12. Old cerebrovascular accident on CT scan. HISTORY AND PHYSICAL: The patient is a pleasant 89-year-old female from [facility]. She was recently sent there after her had . They had previously lived in [place], [place]. They have a son who is a power of trial attorney, he lives in [place]. She has had physical therapy. She had a near syncopal episode. She was brought to the ER for evaluation. Unfortunately, she remains very confused and could not provide much of the history. She does not remember much. PHYSICAL EXAMINATION: Please see the dictated note. PERTINENT LABORATORY AND X-RAY STUDIES: On admission, her hemoglobin was 13.5 g/dL with a white count of 85. Her electrolytes are within normal range with a potassium of 3.9 mEq, creatinine is 1.3 mg percent. Nonfasting blood sugar 153. BNP was 522. Cardiac enzymes are negative for coronary ischemia. Imaging studies included CT of the head which showed no evidence of new stroke, old CVA identified. There is some encephalomalacia as well as cerebral atrophy. Chest x-ray shows some residual infiltrate, otherwise clear. There is interval improvement in the left lung base infiltrate. No new infiltrates identified. Long bones x-ray showed no acute fracture. COURSE IN THE HOSPITAL: The patient was admitted. She had orthostatic blood pressure checks, which showed no significant drop. She had her diet advanced and home meds were continued. She did well by the second hospital day, she was up and eating her breakfast independently. She was afebrile. Blood pressure and vital signs were quite stable and she was ready for discharge back to [facility]. At this time, there are no changes on her medications. DISCHARGE MEDICATIONS: Include the following: She will continue her Coreg 6.25 mg b.i.d., lisinopril 40 mg p.o. daily, aspirin 1 daily, omeprazole 20 mg p.o. daily, calcium carbonate, Sinemet 25/100 t.i.d., Synthroid 50 mcg daily, Lidoderm patch daily p.r.n., loperamide, melatonin 5 mg daily, Namenda 10 mg daily, Zoloft 50 mg p.o. daily, multivitamin one daily. Her prognosis is guarded. She was discharged then from our hospital in stable condition with explicit drug and followup care at [facility]. Total discharge time spent [address]: yCndi TID: [id number] CC: Vipul Collazo
[2021-02-25 10:38] VITALS: BP 130/77
[2021-02-25 20:09] VITALS: BP 148/68
[2021-02-25] MEDS: MELATONIN 3 MG TABLET PO SCH (20:31)
[2021-02-25] MEDS: SERTRALINE 50 MG TABLET. PO SCH (20:31)
[2021-02-25 22:47] VITALS: BP 96/61
[2021-02-26 05:06] VITALS: BP 144/79
[2021-02-26] MEDS: LEVOTHYROXINE 50 MCG TABLET PO SCH (05:58)
[2021-02-26] MEDS: INSULIN LISPRO 300 UNITS/3 ML VIAL. SQ SCH (08:00)
[2021-02-26] MEDS: NYSTATIN TOPICAL POWDER 15GM BOTTLE. TP SCH (09:00)
[2021-02-26] MEDS: CALCIUM POLYCARBOPHIL 625 MG TABLET PO SCH (09:00)
[2021-02-26] MEDS: MULTIVITAMIN with MINERAL TABLET. PO SCH (09:00)
[2021-02-26] MEDS: MEMANTINE 10 MG TABLET. PO SCH (09:21)
[2021-02-26] MEDS: CARBIDOPA/LEVODOPA 25/100MG TABLET PO SCH (09:21)
[2021-02-26] MEDS: CARVEDILOL 6.25 MG TABLET PO SCH (09:21)
[2021-02-26 09:22] VITALS: BP 144/79
[2021-02-26] MEDS: PANTOPRAZOLE 40 MG TABLET. PO SCH (09:22)
[2021-02-26] MEDS: LIDOCAINE (700MG/PATCH) PATCH. TP SCH (09:22)
[2021-02-26] MEDS: LISINOPRIL 20 MG TABLET PO SCH (09:22)
[2021-02-26] MEDS: CHOLECALCIFEROL (VITAMIN D3) 1,000 UNIT TABLET PO SCH (09:22)
== END 2021-02-26 09:50 ==
LOC: ER 10:46 → 1 SOUTH 13:20 → INTOOBSV 13:20
PROVIDERS: ADMIT Internal Medicine; ATTEND Internal Medicine
DX: R55 Syncope and collapse (principal); I10 Essential (primary) hypertension; I49.9 Cardiac arrhythmia, unspecified; G20 Parkinson's disease; D50.9 Iron deficiency anemia, unspecified; E03.9 Hypothyroidism, unspecified; G47.33 Obstructive sleep apnea (adult) (pediatric); K21.9 Gastro-esophageal reflux disease without esophagitis; E11.8 Type 2 diabetes mellitus with unspecified complications; F32.9 Major depressive disorder, single episode, unspecified; F02.80 Dementia in other diseases classified elsewhere, unspecified severity, without behavioral disturbance, psychotic disturbance, mood disturbance, and anxiety; G62.9 Polyneuropathy, unspecified; I25.10 Atherosclerotic heart disease of native coronary artery without angina pectoris; E78.00 Pure hypercholesterolemia, unspecified; M16.12 Unilateral primary osteoarthritis, left hip; M17.12 Unilateral primary osteoarthritis, left knee; M25.562 Pain in left knee; M81.0 Age-related osteoporosis without current pathological fracture; M48.00 Spinal stenosis, site unspecified; Z86.73 Personal history of transient ischemic attack (TIA), and cerebral infarction without residual deficits; Z98.890 Other specified postprocedural states; Z87.898 Personal history of other specified conditions; Z98.891 History of uterine scar from previous surgery; W19.XXXA Unspecified fall, initial encounter; Y92.89 Other specified places as the place of occurrence of the external cause; Y93.89 Activity, other specified; Y99.8 Other external cause status
CPT/HCPCS: 36415; 51701; 70450; 71045; 73502; 73562; 80053; 81001; 82553; 82947; 83735; 84484; 85025; 85610; 85730; 93005; 96360; 96361; 97162; 97166; 97530; 99285; G0378; J7030; G0379

== ENCOUNTER 2021-04-16 09:39 | Emergency (ER) | payer MEDICARE ==
[~2021-04-16] VITALS: Ht 157.5 cm; Wt 75.6 kg
--- NOTE | 2021-04-16 09:57 | PHYS DOC ---
Past History Past Medical History: Anemia, Arthritis, CAD, Constipation, CVA, Dementia, Depression, Diabetes, GERD, High Cholesterol, Hypertension, Hypothyroid, UTI, Other Additional Past Medical Histor: Parkinsons, SLEEP APNEA; dysphagia; low back pain Past Surgical History: , Other Additional Past Surgical Histo: Spinal, GI Alcohol Use: None Adult General HPI HPI Patient is an 89-year-old female presenting from local care home via EMS for shortness of breath. History limited per patient due to underlying cognitive deficits and so, all history obtained from EMS. It was mention per report that patient was found to have increased work of breathing by nursing staff which prompted them to administer 3 L oxygen via nasal cannula. EMS was contacted and on arrival, patient was found to be 86% on 3 L. There were no falls, no traumas, no changes in baseline health or recent medications. Son who is primary decision maker contacted and decision was made to transport to our ER for evaluation. Review of Systems Review of Systems Unobtainable due to patient mentation Allergies Allergies Allergies Coded Allergies Type Severity Reaction Last Updated Verified No Known Drug Allergies 02/24/21 No Physical Exam Physical Exam Constitutional: Well developed, well nourished, demonstrates increased work of breathing but is overall non-toxic in appearance. HENT: Normocephalic, atraumatic, bilateral external ears normal, oropharynx moist, no oral exudates, nose normal. Eyes: PERRLA, EOMI, conjunctiva normal, no discharge. Neck: Normal range of motion, no tenderness, supple, no stridor. Cardiovascular: Heart rate regular, sinus rhythm, no murmurs rubs or gallops Lungs & Thorax: Tachypneic with increased work of breathing without any obvious respiratory failure impending compromise, there are scant crackles in bilateral bases otherwise clear to auscultation Abdomen: Bowel sounds normal, soft, no tenderness, no masses, no pulsatile masses. Nonsurgical abdomen, no peritoneal signs Skin: Warm, dry, no erythema, no rash. Back: No tenderness, no CVA tenderness. Extremities: No tenderness, no cyanosis, no clubbing, ROM intact, no edema. Neurologic: Alert and unable to assess orientation due to nonverbal status, grossly normal motor & sensory function moving all x4 extremities freely, no focal deficits noted. Downgoing toes bilaterally Psychologic: Flat affect, unable to fully evaluate Current Patient Data Vital Signs Vital Signs Date Time Temp Pulse Resp B/P (MAP) Pulse Ox O2 Delivery O2 Flow Rate FiO2 04/16/21 09:50 100.9 82 34 179/111 (133) 98 NonRebreather Mask 15.0 Vital Signs Date Time Temp Pulse Resp B/P (MAP) Pulse Ox O2 Delivery O2 Flow Rate FiO2 04/16/21 12:06 74 24 145/86 (105) 96 15.0 04/16/21 09:50 100.9 NonRebreather Mask Lab Results Laboratory Tests Test 04/16/21 09:46 04/16/21 09:50 White Blood Count 12.2 x10^3/uL Red Blood Count 4.91 x10^6/uL Hemoglobin 13.6 g/dL Hematocrit 41.7 % Mean Corpuscular Volume 85 fL Mean Corpuscular Hemoglobin 28 pg Mean Corpuscular Hemoglobin Concent 33 g/dL Red Cell Distribution Width 16.6 % Platelet Count 276 x10^3/uL Neutrophils (%) (Auto) 77 % Lymphocytes (%) (Auto) 11 % Monocytes (%) (Auto) 11 % Eosinophils (%) (Auto) 1 % Basophils (%) (Auto) 0 % Neutrophils # (Auto) 9.4 x10^3uL Lymphocytes # (Auto) 1.3 x10^3/uL Monocytes # (Auto) 1.4 x10^3/uL Eosinophils # (Auto) 0.1 x10^3/uL Basophils # (Auto) 0.1 x10^3/uL Sodium Level 152 mmol/L Potassium Level 3.5 mmol/L Chloride Level 115 mmol/L Carbon Dioxide Level 26 mmol/L Anion Gap 11 Blood Urea Nitrogen 20 mg/dL Creatinine 0.9 mg/dL Estimated GFR (Cockcroft-Gault) 59.1 BUN/Creatinine Ratio 22 Glucose Level 148 mg/dL Lactic Acid Level 1.0 mmol/L Calcium Level 9.0 mg/dL Total Bilirubin 0.6 mg/dL Aspartate Amino Transf (AST/SGOT) 26 U/L Alanine Aminotransferase (ALT/SGPT) 28 U/L Alkaline Phosphatase 99 U/L Troponin I Quantitative < 0.017 ng/mL Total Protein 6.8 g/dL Albumin 2.8 g/dL Albumin/Globulin Ratio 0.7 Urine Collection Type Unknown Urine Color Yellow Urine Clarity Hazy Urine pH 5.5 Urine Specific [place] 1.025 Urine Protein 100 mg/dl Urine Glucose (UA) Neg mg/dL Urine Ketones (Stick) Neg mg/dL Urine Blood Trace Urine Nitrite Neg Urine Bilirubin Small Urine Urobilinogen Dipstick 1.0 mg/dL Urine Leukocyte Esterase Neg Urine RBC 1-2 /HPF Urine WBC 1-4 /HPF Urine Squamous Epithelial Cells Occ /LPF Urine Bacteria Few /HPF Urine Hyaline Casts Few /HPF Urine Granular Casts Occ /HPF Urine Mucus Marked /LPF Current Medications Medications (Trade) Dose Ordered Sig/Sarah Route PRN Reason Start Time Stop Time Status Last Admin Dose Admin Acetaminophen (Tylenol Supp) 650 mg 1X ONCE OH 04/16/21 10:00 04/16/21 10:13 DC 04/16/21 10:33 EKG EKG [] Radiology/Procedures Radiology/Procedures Study: XR CHEST 1V Indication: Shortness of breath. Comparison: 02/24/2021 Findings: Similar configuration of the cardiomediastinal silhouette with prominence of the upper mediastinum in the setting of low lung volumes. No newly seen abnormality of the tasia. There is again tracheal deviation to the right and apparent thickening of the right paratracheal stripe. No confluent airspace infiltrate, large effusion or pneumothorax. Probable mild basilar volume loss. Hiatal hernia. Osteopenia and incompletely assessed degenerative changes. Impression: No acute radiographic abnormality of the chest. No significant change from the 02/24/2021 comparison with chronic observations as above. Electronically signed by: CHRISTI EUBANKS MD (04/16/2021 10:35 AM) [id number] Heart Score C/O Chest Pain: N/A HEART Score for Chest Pain: HEART Score for Chest Pain Response (Comments) Value Age > 65 2 Risk Factors >3 Risk Factors or Hx CAD 2 Troponin < Normal Limit 0 Total 4 Risk Factors: Risk Factors: DM, Current or recent (<one month) smoker, HTN, HLP, family history of CAD, obesity. Risk Scores: Risk Factors: DM, Current or recent (<one month) smoker, HTN, HLP, family history of CAD, obesity. Course & Med Decision Making Course & Med Decision Making Airway patent, patient demonstrating increased work of breathing, IV access and vitals obtained concerning for febrile patient who is hypertensive and tachypneic Patient placed on nonrebreather with improvement in respiratory symptoms. Suppository Tylenol administered. HPI extremely limited but physical exam and partial ER work-up obtained when contact was made with patient's primary care physician who also services care home physician and hospitalist. I discussed case and work-up so far. He advised me to discuss goals of care with son to determine if admission for further inpatient work-up/medical management and transfer to hospice versus discharge back to care home for current palliative care practices Son was contacted who is primary decision maker for patient and he is knowledgeable that patient is in the middle of transitioning to hospice care. He did not request any aggressive intervention for patient. Work-up so far discussed, it was disclosed that at time of discussion no obvious sign of infection was found. He was amenable for discharge back to care home facility for continued respiratory care via supplemental oxygen, treatment of fever without other further aggressive intervention. Patient's wishes were honored and patient discharge back to care home Critical Care Time This patient required critical care. Due to the fact that the patient required a significant amount of one on one physician - patient contact time, ordering and review of studies, arranging urgent treatment with development of a management plan, evaluation of patients response to treatment with frequent reassessments, and discussions with other providers this patient required 35 minutes of critical care time. Critical care time was indicated due to the inherent instability and/or potential for instability in this patient. The critical care time that is allocated to this patient is above and beyond any time spent on any other billable procedures performed on this patient. Dragon Disclaimer Dragon Disclaimer This electronic medical record was generated, in whole or in part, using a voice recognition dictation system. Departure Departure: Impression: Primary Impression: Fever Additional Impression: Acute respiratory failure Disposition: 01 HOME / SELF CARE / HOMELESS Condition: STABLE Referrals: ROSIBEL LOVE MD (PCP) Patient Instructions: Fever of Unknown Origin Additional Instructions: As discussed prior to ER departure, your vital signs were concerning for hypoxia that required supplemental oxygen use and fever of 100.9. Your physical exam and comprehensive work-up was nonconcerning for any emergent or surgical issues. There is no obvious source of infection after comprehensive ER work-up. Your case was discussed with your son regarding plan of care for admission for continued evaluation and treatment of fever of unknown etiology versus discharge back to care home under the care of your primary care physician for continued outpatient medical management and transition to hospice. I contacted your primary care physician, Dr. Schmitt, and he was amenable to discharge back to [place] to transition to hospice care. If any concerning signs or symptoms present prior to outpatient follow-up please do not hesitate to come back for repeat evaluation. It was a pleasure to take care of you and I wish you the best going forward Problem Qualifiers SAMIA MONTERO DO Apr 16, 2021 09:57
[2021-04-16 10:16] LABS: BASO # 0.1 x10^3/uL (0.0-0.2); BASO % 0 % (0-3); EOS # 0.1 x10^3/uL (0.0-0.7); EOS % 1 % (0-3); HEMATOCRIT 41.7 % (36.0-47.0); HEMOGLOBIN 13.6 g/dL (12.0-15.5); LYMPH # 1.3 x10^3/uL (1.0-4.8); LYMPH % 11 % (24-48); MEAN CORPUSCULAR HEMOGLOBIN 28 pg (25-35); MEAN CORPUSCULAR HGB CONC 33 g/dL (31-37); MEAN CORPUSCULAR VOLUME 85 fL (79-100); MONO # 1.4 x10^3/uL (0.0-1.1); MONO % 11 % (0-9); NEUT # 9.4 x10^3uL (1.8-7.7); NEUT % 77 % (31-73); PLATELET COUNT 276 x10^3/uL (140-400); RED BLOOD COUNT 4.91 x10^6/uL (3.50-5.40); RED CELL DISTRIBUTION WIDTH 16.6 % (11.5-14.5); WHITE BLOOD COUNT 12.2 x10^3/uL (4.0-11.0)
[2021-04-16 10:20] LABS: CREATININE 0.9 mg/dL (0.6-1.0); GFR 59.1; POTASSIUM 3.5 mmol/L (3.5-5.1)
[2021-04-16 10:23] LABS: BILIRUBIN,URINE SMALL (NEG); CLARITY,URINE HAZY; COLOR,URINE YELLOW; GLUCOSE,URINE NEG (NEG)
[2021-04-16 10:24] LABS: NITRITE,URINE NEG (NEG)
[2021-04-16 10:26] LABS: ALBUMIN 2.8 g/dL (3.4-5.0); ALBUMIN/GLOBULIN RATIO 0.7 (1.0-1.7); TOTAL BILIRUBIN 0.6 mg/dL (0.2-1.0); TOTAL PROTEIN 6.8 g/dL (6.4-8.2)
[2021-04-16 10:30] LABS: BACTERIA,URINE FEW /HPF (0-FEW); GRANULAR CASTS,URINE OCC /HPF; HYALINE CASTS, URINE FEW /HPF; SQUAMOUS EPITHELIAL CELL,UR OCC /LPF
[2021-04-16] MEDS: ACETAMINOPHEN 650 MG SUPP.RECT. PR ONE (10:33)
--- NOTE | 2021-04-16 10:37 | RAD ---
Study: XR CHEST 1V Indication: Shortness of breath. Comparison: 02/24/2021 Findings: Similar configuration of the cardiomediastinal silhouette with prominence of the upper mediastinum in the setting of low lung volumes. No newly seen abnormality of the tasia. There is again tracheal jasbir ation to the right and apparent thickening of the right paratracheal stripe. No confluent airspace infiltrate, large effusion or pneumothorax. Probable mild basilar volume loss. Hiatal hernia. Osteopenia and incompletely assessed degenerative changes. Impression: No acute radiographic abnormality of the chest. No significant change from the 02/24/2021 comparison w ith chronic observations as above. Electronically signed by: CHRISTI EUBANKS MD (04/16/2021 10:35 AM) [id number]
[2021-04-16 12:06] VITALS: BP 145/86
--- NOTE | 2021-04-16 20:14 | EKG ---
[address] [address] Test Date: 2021-04-16 Test Time: 09:50:30 Pat Name: DIAMOND NANCE Department: Room: Gender: F Hospitality Director: JAN : [id number] Requested By: SAMIA MONTERO Order Number: [id number] Reading MD: Measurements Intervals [place] Rate: 91 P: -50 HI: 226 QRS: -10 QRSD: 88 T: 16 QT: 420 QTc: 519 Interpretive Statements SUPRAVENTRICULAR RHYTHM PROLONGED HI INTERVAL LEFT ATRIAL ABNORMALITY LEFTWARD AXIS QRS(T) CONTOUR ABNORMALITY CONSISTENT WITH INFERIOR INFARCT AGE UNDETERMINED ABNORMAL ECG RI6.02 No previous ECG available for comparison
== END 2021-04-16 12:35 | disposition home or self-care (01) ==
LOC: ER 09:39
DX: J96.00 Acute respiratory failure, unspecified whether with hypoxia or hypercapnia (principal); F50.9 Eating disorder, unspecified; E11.9 Type 2 diabetes mellitus without complications; K21.9 Gastro-esophageal reflux disease without esophagitis; I10 Essential (primary) hypertension
CPT/HCPCS: 36415; 71045; 80053; 81001; 83605; 84484; 85025; 87040; 93005; 99291-25